=== PATIENT | female | born 1970 | race Caucasian/White ===

== ENCOUNTER 2024-03-14 14:50 | Emergency (ER) | payer BC, SELFPAY ==
[2024-03-14 14:57] VITALS: BP 182/104
--- NOTE | 2024-03-14 17:18 | ED.GENMED ---
History of Present Illness
General
Chief Complaint: Musculo-Skeletal Complaint
Source: patient
Exam Limitations: none
Time Seen by Provider: 03/14/24 15:22
Nursing documentation reviewed up to this point in time: agreed with
Travel History
Have you had any contact with someone who has COVID-19?: No
Do you have any symptoms of coronavirus? Fever > 100 degrees, chills, cough, shortness of breath, sore throat, loss of taste or smell, muscle aches, or headache?: No
History of Present Illness
History of Present Illness:
53-year-old female presenting to the emergency department today with concerns of left-sided wrist discomfort after falling directly on her left hand while gardening. Ongoing pain since. Pain mainly to the area below the pinky. Denies any
additional trauma no breaks in the skin
Past History
Past History
ED Past Medical History: Psychiatric and Other (Arthritis)
ED Past Surgical History: and Orthopedic (L3-4-5 surgery)
Social History
Tobacco: Non-smoker
Alcohol: None
Drug: None
Personal:
Living: with family
Employment: Employed
Review of Systems
Review of Systems
Allergies reviewed?: Yes
All Other Systems: ROS reviewed and negative except as documented in HPI and ROS
Phy Exam
Physical Exam
Physical Exam:
GENERAL: Alert , in no apparent distress
EYE: pupils equal and reactive
NECK: Supple, no significant adenopathy.
ENT: o/p clr, mmm.
CARDIAC: Regular rate and rhythm .
LUNGS: Clear breath sounds bilaterally, no acute respiratory distress, no wheezes/rales/rhonchi
ABDOMEN: Soft, without focal tenderness, no r/g, no cvat
NEUROLOGICAL: Alert and oriented, no focal neuro deficits
SKIN: Warm and dry, skin intact.
MUSCULOSKELETAL: Very mild swelling tender palpation to the mid to proximal fifth meta. Otherwise remainder of the hand no focal tenderness. Well perfused.
PSYCH: Normal and appropriate interaction.
Course
Orders/Labs/Results
Orders:
Orders
03/14/24 15:00
Hand, Left 3 View [CR Hand - Left Min 3 Views] Urgent
Comment:
Reason For Exam: fall
Wrist, Left 3 Views CR [CR Wrist - Left Min 3 Views] Urgent
Comment:
Reason For Exam: fall
Vital Signs
Initial and Last Documented VS:
Initial Vital Signs
Temp Pulse Resp BP Pulse Ox
97.9 F 97 18 182/104 97
03/14/24 14:57 03/14/24 14:57 03/14/24 14:57 03/14/24 14:57 03/14/24 14:57
Last Documented Vital Signs
Temp Pulse Resp BP Pulse Ox
97.9 F 97 18 182/104 97
03/14/24 14:57 03/14/24 14:57 03/14/24 14:57 03/14/24 14:57 03/14/24 14:57
MDM/Problems Addressed
MDM/Problems Addressed:
53-year-old female presenting to the emergency department today with concerns of hand and wrist discomfort to the left side after falling directly on her hand from ground-level fall. Pain is mainly to the mid to proximal portion of the fifth. On
x-ray there is no obvious displaced fracture there does appear to be's 1 small line to the base of the bone that is not clearly a fracture. In an abundance of caution placed in a splint and advised for close orthopedic follow-up for for further
management. Otherwise stable for discharge return precautions given. Neurovascular intact.
*Critical Care Note
Total Time (30-74mins, 75-104mins- exclusive of procedures): Not Applicable
ED Attending Note
-
Portions of this chart may have been created with voice recognition software.� Occasional wrong word or��sound alike� substitutions may have occurred due to the inherent limitations of voice recognition software.
Discharge Plan
Departure
Patient Disposition: Home (Routine Discharge)
Date of Disposition: 03/14/24
Time of Disposition: 17:18
Patient with high blood pressure during this ER visit?: No
Condition: Good
Covid-19: Not Applicable
Discharge Problem:
Hand sprain
Instructions: Muscle and Bone Pain (DC)
Prescriptions:
No Action
diphenhydramine-acetaminophen [Tylenol PM Extra Strength] 1 EACH tablet
1 ea PO HSPRN PRN (Reason: sleep)
cetirizine [Zyrtec] 10 MG tablet
10 mg PO DAILYPRN PRN (Reason: allergy)
metformin 500 mg Tablet
500 mg PO DAILY PRN (Reason: weight loss)
valacyclovir [Valtrex] 500 mg Tablet
500 mg PO DAILY
triamcinolone acetonide [Nasacort Allergy] 55 mcg Aerosol,[place]
1 spray INTRANASAL DAILY PRN (Reason: allergies)
Rx Instructions:
administer into each nostril
Wegovy 1 mg/0.5 mL Pen Injector
1 mg SC SA
ascorbic acid (vitamin C) [Vitamin C] 500 mg Tablet
500 mg PO Q72H
cholecalciferol (vitamin D3) 25 mcg (1,000 unit) Tablet
25 mcg PO Q72H
cyanocobalamin (vitamin B-12) 250 mcg Tablet,Chewable
250 mcg PO Q72H
mupirocin 2 % ointment
1 applic intranasal BID Qty: 1 0RF
Patient Comments:
last dose was this am, 03/18/23
aspirin 325 mg Tablet
325 mg PO DAILY Qty: 30 0RF
docusate sodium 100 mg Capsule
100 mg PO BID Qty: 10 0RF
prochlorperazine maleate 5 mg Tablet
5 mg PO TID Qty: 30 0RF
dronabinol 2.5 mg Capsule
5 mg PO Q6HPRN PRN (Reason: severe pain) Qty: 30 0RF
gabapentin 300 mg Capsule
300 mg PO TID Qty: 60 0RF
prednisone 20 mg tablet
40 mg PO DAILY Qty: 10 0RF
cyclobenzaprine 10 mg tablet
10 mg PO HS Qty: 7 0RF
Referrals:
Gretel Roach CRNP [Family Provider] -
Gregg Antonio MD [Active] - Follow up in 5-7 days
Activity Restrictions/Additional Instructions:
You came to the emergency department today with concerns of hand discomfort. There is no obvious displaced fractures. There was a questionable line in the base of your fifth metatarsal that was seen though it is unclear if this represents a mild
nondisplaced fracture. You were placed in a splint and precaution. Please have close with orthopedics for this. Return to the emergency department for any worsening, new or concerning symptoms.
Interventions
Interventions:
*Risk Screen - Suicide Last Done: 03/14/24 14:57
*General Assessment Last Done: 03/14/24 14:57
*Neglect/Abuse Screening Last Done: 03/14/24 14:57
ED- Fall Risk Assessment Last Done: 03/14/24 15:37
*ED COVID-19 Vaccine History Last Done: 03/14/24 15:27
*Nursing Disposition Last Done: 03/14/24 17:24
ED-Musculoskeletal Assessment Last Done: 03/14/24 15:37
Discharge Date and Time
Discharge Date/Time: 03/14/24 17:27
Print Language: INDONESIAN
== END 2024-03-14 17:27 | disposition home or self-care (01) ==
LOC: EMR 14:50
PROVIDERS: EMERGENCY PHYSICIAN Emergency Medicine; FAMILY PHYSICIAN Nurse Practitioner Family
DX: S63.92XA Sprain of unspecified part of left wrist and hand, initial encounter (principal); X58.XXXA Exposure to other specified factors, initial encounter; M19.90 Unspecified osteoarthritis, unspecified site
CPT/HCPCS: 99283; 73110; 73130

== ENCOUNTER 2024-05-11 08:08 | Emergency (ER) | payer BC, SELFPAY ==
[2024-05-11 08:10] VITALS: BP 174/98
[2024-05-11 08:26] VITALS: BMI 44.8
--- NOTE | 2024-05-11 08:29 | ED.GENMED ---
History of Present Illness
General
Chief Complaint: Abdominal Symptoms
Source: patient
Time Seen by Provider: 05/11/24 08:15
History of Present Illness
History of Present Illness:
See MDM
Past History
Past History
ED Past Medical History: Psychiatric and Other (Arthritis)
ED Past Surgical History: and Orthopedic (L3-4-5 surgery)
Social History
Tobacco: Non-smoker
Alcohol: None
Drug: None
Personal:
Living: with family
Employment: Employed
Phy Exam
Physical Exam
Physical Exam:
See MDM
Course
Orders/Labs/Results
Orders:
Orders
05/11/24 08:26
CT Abd/pelvis W Iv Cont Urgent
Comment:
Reason For Exam: L flank and LLQ pain
0.9% Sodium Chloride 1000 ml [Nss] 1,000 ml IV BOLUS
Ketorolac [Toradol] 30 mg IV NOW STA
Ondansetron Injectable [Zofran] 4 mg IV NOW STA
05/11/24 08:51
Complete Blood Count/With Diff Urgent
Comprehensive Metabolic Panel Urgent
Lipase Urgent
Urinalysis Reflex To Culture Urgent
Date Specimen was Collected: 05/11/24
Time Specimen was Collected: 08:48
05/11/24 10:58
Amoxicillin 875 mg/Clav 125 mg [Augmentin 875 mg/125 mg] 1 tablet PO NOW STA
Abnormal Lab Results
05/11/24
08:51
WBC 15.3 H 10^3/uL
(4.8-10.8)
Abs Immat Gran (auto) 0.1 H 10^3/uL
(0-0.05)
Absolute Neuts (auto) 11.1 H 10^3/uL
(1.4-6.5)
Absolute Monos (auto) 1.3 H 10^3/uL
(0.1-0.6)
Lymphocytes % 17.7 L %
(20.5-51.1)
Glucose 116 H mg/dl
(70-99)
05/11/24 08:51
05/11/24 08:51
Vital Signs
Initial and Last Documented VS:
Initial Vital Signs
Temp Pulse Resp BP Pulse Ox
98.7 F 97 16 174/98 98
05/11/24 08:10 05/11/24 08:10 05/11/24 08:10 05/11/24 08:10 05/11/24 08:10
Last Documented Vital Signs
Temp Pulse Resp BP Pulse Ox
98.7 F 92 22 128/67 94
05/11/24 08:10 05/11/24 10:23 05/11/24 10:23 05/11/24 10:23 05/11/24 10:23
MDM/Problems Addressed
Differential Diagnosis Includes:
HPI and MDM Narrative:
53-year-old female presenting with several days of left abdominal pain. Patient thought it could be a muscle strain so she took a muscle relaxer. Patient was also concerned that it could be constipation or possibly reflux. Patient states the pain
has been constant and getting worse.
On exam, she does appear uncomfortable. She has tenderness in her left abdomen and left lower quadrant. We discussed the possibilities of kidney stone versus constipation versus diverticulitis. Given her discomfort, will obtain CT
Physical exam
General: Mildly uncomfortable.
HEENT: protecting airway
Neck: appears supple
CV: No evidence of cyanosis
Resp: No accessory muscle use
Abd: Non-distended. Left abdominal tenderness without localized rebound.
Extremities: No deformities
Neuro: alert
Psych: Normal affect
Skin: No abdominal rash noted.
Problems Addressed including Acute and Chronic Conditions affecting care:
1. Abdominal pain
Acuity: acute
Prognosis: stable
Details: Given her ongoing pain, will obtain CT. Will give Toradol
2. Nausea
Acuity: acute
Prognosis: stable
Details: Will give IV Zofran.
Updates
CT consistent with mild uncomplicated diverticulitis. Will start Augmentin. Discussed follow-up with PCP and gastroenterology. We also discussed the adrenal versus renal cyst but patient has not had this followed up in the past.
Differential Diagnosis (but not limited to): Diverticulitis, kidney stone, pyelonephritis, constipation
Testing considered: EKG
Drug therapy (if applicable): OTC meds, please see d/c instruction regarding Rx drugs
Amount and/or Complexity of Data Reviewed
Clinical info obtained from: Patient
External data reviewed: N/A
Labs I independently reviewed (but not limited to): Mild leukocytosis
Radiology: The CT scan was personally and independently reviewed. In addition, official CT report reviewed.
Pulse Ox: not hypoxic
EKG independently reviewed: N/A
Supervisor Front: N/A
Critical Care: N/A
Risk of Complication:
Social Determinants of health: Good social support
Discussed with other providers: N/A
Escalation of Care includes Admit/Obs: After being observed in the Emergency Department, pt stable for discharge.
Occasional wrong word or 'sound a like' substitutions may have occurred due to the inherent limitations of voice recognition software. Read the chart carefully and recognize, using context, where substitutions have occurred.
*Critical Care Note
Total Time (30-74mins, 75-104mins- exclusive of procedures): Not Applicable
ED Attending Note
-
Portions of this chart may have been created with voice recognition software.� Occasional wrong word or��sound alike� substitutions may have occurred due to the inherent limitations of voice recognition software.
Discharge Plan
Departure
Patient Disposition: Home (Routine Discharge)
Date of Disposition: 05/11/24
Time of Disposition: 10:59
Patient with high blood pressure during this ER visit?: No
Discharge Problem:
Diverticulitis
Instructions: Diverticulitis (DC)
Prescriptions:
New
diclofenac potassium 50 mg tablet
50 mg PO BID Qty: 20 0RF
ondansetron 4 mg Tablet,Disintegrating
4 mg PO BIDPRN PRN (Reason: nausea/vomiting) Qty: 10 0RF
amoxicillin-pot clavulanate 875-125 mg tablet
1 tab PO BID Qty: 14 0RF
oxycodone 5 mg tablet
5 mg PO Q8H PRN (Reason: Pain) Qty: 7 0RF
No Action
diphenhydramine-acetaminophen [Tylenol PM Extra Strength] 1 EACH tablet
1 ea PO HSPRN PRN (Reason: sleep)
cetirizine [Zyrtec] 10 MG tablet
10 mg PO DAILYPRN PRN (Reason: allergy)
metformin 500 mg Tablet
500 mg PO DAILY PRN (Reason: weight loss)
valacyclovir [Valtrex] 500 mg Tablet
500 mg PO DAILY
triamcinolone acetonide [Nasacort Allergy] 55 mcg Aerosol,[place]
1 spray INTRANASAL DAILY PRN (Reason: allergies)
Rx Instructions:
administer into each nostril
Wegovy 1 mg/0.5 mL Pen Injector
1 mg SC SA
ascorbic acid (vitamin C) [Vitamin C] 500 mg Tablet
500 mg PO Q72H
cholecalciferol (vitamin D3) 25 mcg (1,000 unit) Tablet
25 mcg PO Q72H
cyanocobalamin (vitamin B-12) 250 mcg Tablet,Chewable
250 mcg PO Q72H
mupirocin 2 % ointment
1 applic intranasal BID Qty: 1 0RF
Patient Comments:
last dose was this am, 03/18/23
aspirin 325 mg Tablet
325 mg PO DAILY Qty: 30 0RF
docusate sodium 100 mg Capsule
100 mg PO BID Qty: 10 0RF
prochlorperazine maleate 5 mg Tablet
5 mg PO TID Qty: 30 0RF
dronabinol 2.5 mg Capsule
5 mg PO Q6HPRN PRN (Reason: severe pain) Qty: 30 0RF
gabapentin 300 mg Capsule
300 mg PO TID Qty: 60 0RF
prednisone 20 mg tablet
40 mg PO DAILY Qty: 10 0RF
cyclobenzaprine 10 mg tablet
10 mg PO HS Qty: 7 0RF
Referrals:
Salena Tate DO [Active] -
Gretel Hubbard MD [Family Provider] -
Stand Alone Forms: Return to Work
Activity Restrictions/Additional Instructions:
Please return for any worsening symptoms.
You may return at any time if you have further concerns.
Please follow up with your doctor at the first available appointment, preferably this week.
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
Thank you for choosing [facility].
Interventions
Interventions:
*Risk Screen - Suicide Last Done: 05/11/24 08:26
*General Assessment Last Done: 05/11/24 08:26
*Neglect/Abuse Screening Last Done: 05/11/24 08:26
ED- Fall Risk Assessment Last Done: 05/11/24 08:26
*ED COVID-19 Vaccine History Last Done: 05/11/24 08:34
MZ-Wfvxhf-Vnqpymvpta Assessment Last Done: 05/11/24 08:26
Discharge Date and Time
Print Language: ICELANDIC
[2024-05-11] MEDS: NSS 1000 IV (08:56)
[2024-05-11] MEDS: TORADOL 30 MG IV (08:57)
[2024-05-11] MEDS: ZOFRAN 4 MG IV (08:57)
[2024-05-11 09:00] VITALS: BP 139/86
[2024-05-11 09:09] LABS: % Basophils 0.3 % (0-2); % Eosinophils 0.3 % (0-6); % Immature Granulocytes 0.3 % (0-0.5); % Lymphocytes 17.7 % (20.5-51.1); % Monocytes 8.7 % (1.7-9.3); % Neutrophils 72.7 % (42.2-75.2); Absolute Immature Granulocytes 0.1 10^3/uL (0-0.05); Absolute Lymphocytes 2.7 10^3/uL (1.2-3.4); Absolute Monocytes 1.3 10^3/uL (0.1-0.6); Absolute Neutrophils 11.1 10^3/uL (1.4-6.5); Hematocrit 40.5 % (37.0-47.0); Hemoglobin 13.6 g/dL (12.0-16.0); Mean Corp Hgb Conc. 33.6 g/dL (33.0-37.0); Mean Corpuscular Hgb 30.4 pg (27.0-31.0); Mean Corpuscular Volume 90.4 fL (81.0-99.0); Mean Platelet Volume 10.1 fL (7.4-10.4); Nucleated Red Blood Cells % 0 %; Platelet Count 285 10^3/uL (130-400); Red Blood Cell Count 4.48 10^6/uL (4.20-5.40); Red Cell Dist. Width 13.2 % (11.5-14.5); White Blood Cell Count 15.3 10^3/uL (4.8-10.8)
[2024-05-11 09:21] LABS: ALT (SGPT) 26 U/L (0-35); AST (SGOT) 24 U/L (14-36); Albumin 4.3 g/dl (3.5-5.0); Alkaline Phosphatase 96 U/L (38-126); Blood Urea Nitrogen 10 mg/dl (7-17); Calcium 9.7 mg/dl (8.4-10.2); Carbon Dioxide 30 mmol/L (22-30); Chloride 100 mmol/L (98-107); Estimated Creatinine Clearance 111 ml/min; Glucose 116 mg/dl (70-99); Lipase 105 U/L (23-300); Potassium 4.3 mmol/L (3.5-5.1); Sodium 137 mmol/L (135-145); Total Bilirubin 0.8 mg/dl (0.2-1.3); Total Protein 7.4 g/dl (6.3-8.2); eGFR > 60.00
[2024-05-11 10:19] LABS: Urine Albumin Negative (Neg - Trace); Urine Bilirubin Negative (Negative); Urine Character Clear (Clear); Urine Color Yellow; Urine Glucose Negative (Negative); Urine Ketone Negative (Negative); Urine Leukocyte Negative (Negative); Urine Nitrite Negative (Negative); Urine Occult Blood Negative (Negative); Urine Urobilinogen Negative (Neg - 1+)
[2024-05-11 10:23] VITALS: BP 128/67
[2024-05-11] MEDS: AUGMENTIN 875 MG/125 MG 1 TABLET PO (11:09)
== END 2024-05-11 11:21 | disposition home or self-care (01) ==
LOC: EMR 08:08
PROVIDERS: EMERGENCY PHYSICIAN Student in an Organized Health Care Education/Training Program; FAMILY PHYSICIAN Family Medicine
DX: K57.92 Diverticulitis of intestine, part unspecified, without perforation or abscess without bleeding (principal)
CPT/HCPCS: 99284; 96374; 96375; 96361; 74177; 80053; 81003; 83690; 85025; Q9967

== ENCOUNTER 2024-09-13 20:35 | Emergency (ER) | payer BC, SELFPAY ==
[2024-09-13 20:38] VITALS: BP 203/105
--- NOTE | 2024-09-13 21:28 | ED.GENMED ---
History of Present Illness
General
Chief Complaint: Flank Pain
Source: patient
Time Seen by Provider: 09/13/24 21:19
History of Present Illness
History of Present Illness:
54-year-old female presents to the emergency room complaining of left lower abdominal pain. Pain began in the morning and has become worse throughout the day. Pain is somewhat worse with movement. She feels bloated. Patient states this pain is
similar to what she was experiencing when diagnosed with diverticulitis in May. No fever. No dysuria or frequency. Patient has left knee pain for which she requires a left knee replacement. She recently received a steroid injection in her knee.
She is also been taking meloxicam and tramadol for pain.
Past History
Past History
ED Past Medical History: Psychiatric and Other (Arthritis)
ED Past Surgical History: and Orthopedic (L3-4-5 surgery)
Social History
Tobacco: Non-smoker
Alcohol: None
Drug: None
Personal:
Living: with family
Employment: Employed
Phy Exam
Physical Exam
Physical Exam:
General: Awake, Alert, Oriented X3. No acute distress. High BMI
Vitals: unremarkable
Head: Atraumatic
Eyes: Pupils equal, EOMI
Throat: Airway intact, no exudates
Neck: Trachea midline
Lungs: Clear and equal b/l
Heart: Regular rate, no murmurs
Abd: Soft, protuberant abdomen, tender in the left lower quadrant, No pulsatile mass
Neuro: Nonfocal
Skin: Warm, dry, no rash
Extremities: pulses equal b/l, no edema
Course
Orders/Labs/Results
Orders:
Orders
09/13/24 21:21
Complete Blood Count/With Diff Urgent
Comprehensive Metabolic Panel Urgent
Lipase Urgent
Comment: ADD ON
09/13/24 21:22
Add On- LAB Urgent
Tests Added?: lipase
09/13/24 21:27
Ketorolac [Toradol] 15 mg IV NOW STA
09/13/24 21:28
CT Abd/pelvis W Iv Cont Urgent
Comment:
Reason For Exam: llq abd pain
09/13/24 22:44
Urinalysis Reflex To Culture Urgent
Date Specimen was Collected: 09/13/24
Time Specimen was Collected: 21:15
09/13/24 22:49
Acetaminophen [Tylenol] 1,000 mg .ROUTE .STK-MED ONE
Acetaminophen [Tylenol] 1,000 mg PO NOW STA
09/13/24 23:19
Amoxicillin 875 mg/Clav 125 mg [Augmentin 875 mg/125 mg] 1 tablet PO NOW STA
Abnormal Lab Results
09/13/24
21:21
WBC 19.9 H 10^3/uL
(4.8-10.8)
Abs Immat Gran (auto) 0.1 H 10^3/uL
(0-0.05)
Absolute Neuts (auto) 17.3 H 10^3/uL
(1.4-6.5)
Absolute Monos (auto) 1.0 H 10^3/uL
(0.1-0.6)
Immature Gran % 0.6 H %
(0-0.5)
Neutrophils % 87.0 H %
(42.2-75.2)
Lymphocytes % 7.5 L %
(20.5-51.1)
Glucose 220 H mg/dl
(70-99)
Total Bilirubin 0.1 L mg/dl
(0.2-1.3)
09/13/24 21:21
09/13/24 21:21
Vital Signs
Initial and Last Documented VS:
Initial Vital Signs
Temp Pulse Resp BP Pulse Ox
98.1 F 91 16 203/105 97
09/13/24 20:38 09/13/24 20:38 09/13/24 20:38 09/13/24 20:38 09/13/24 20:38
Last Documented Vital Signs
Temp Pulse Resp BP Pulse Ox
98.1 F 78 18 155/81 96
09/13/24 20:38 09/13/24 22:46 09/13/24 22:46 09/13/24 22:46 09/13/24 22:46
MDM/Problems Addressed
Differential Diagnosis Includes:
Kidney stone, diverticulitis, colitis
MDM/Problems Addressed:
54-year-old female presents with left lower abdominal pain. White count elevated 19.9. Glucose mildly evaluate to 20. Urinalysis is unremarkable. CT of the abdomen pelvis shows diverticulitis of the mid descending colon. Patient feels better
after Toradol. Discussed inpatient versus outpatient management. Patient feels she is okay for outpatient management. Augmentin prescribed. Given her contact information for colorectal surgery follow-up. She has not had a colonoscopy before
though she did have a Cologuard. Recommend she follow-up with colorectal surgery for colonoscopy and also to establish a relationship with them because she has had 2 episodes of diverticulitis in 6 months
*Radiology
Radiology exam reviewed: radiology read reviewed
*Pulse Oximetry
Patient hypoxic: no
*Critical Care Note
Total Time (30-74mins, 75-104mins- exclusive of procedures): Not Applicable
ED Attending Note
-
Portions of this chart may have been created with voice recognition software.� Occasional wrong word or��sound alike� substitutions may have occurred due to the inherent limitations of voice recognition software.
Discharge Plan
Departure
Patient Disposition: Home (Routine Discharge)
Date of Disposition: 09/13/24
Time of Disposition: 23:20
Patient with high blood pressure during this ER visit?: No
Condition: Good
Discharge Problem:
Diverticulitis
Instructions: Diverticulitis (DC)
Prescriptions:
New
amoxicillin-pot clavulanate 875-125 mg tablet
1 tab PO BID Qty: 14 0RF
No Action
diphenhydramine-acetaminophen [Tylenol PM Extra Strength] 1 EACH tablet
1 ea PO HSPRN PRN (Reason: sleep)
cetirizine [Zyrtec] 10 MG tablet
10 mg PO DAILYPRN PRN (Reason: allergy)
metformin 500 mg Tablet
500 mg PO DAILY PRN (Reason: weight loss)
valacyclovir [Valtrex] 500 mg Tablet
500 mg PO DAILY
triamcinolone acetonide [Nasacort Allergy] 55 mcg Aerosol,[place]
1 spray INTRANASAL DAILY PRN (Reason: allergies)
Rx Instructions:
administer into each nostril
Wegovy 1 mg/0.5 mL Pen Injector
1 mg SC SA
ascorbic acid (vitamin C) [Vitamin C] 500 mg Tablet
500 mg PO Q72H
cholecalciferol (vitamin D3) 25 mcg (1,000 unit) Tablet
25 mcg PO Q72H
cyanocobalamin (vitamin B-12) 250 mcg Tablet,Chewable
250 mcg PO Q72H
mupirocin 2 % ointment
1 applic intranasal BID Qty: 1 0RF
Patient Comments:
last dose was this am, 03/18/23
aspirin 325 mg Tablet
325 mg PO DAILY Qty: 30 0RF
docusate sodium 100 mg Capsule
100 mg PO BID Qty: 10 0RF
prochlorperazine maleate 5 mg Tablet
5 mg PO TID Qty: 30 0RF
dronabinol 2.5 mg Capsule
5 mg PO Q6HPRN PRN (Reason: severe pain) Qty: 30 0RF
gabapentin 300 mg Capsule
300 mg PO TID Qty: 60 0RF
prednisone 20 mg tablet
40 mg PO DAILY Qty: 10 0RF
cyclobenzaprine 10 mg tablet
10 mg PO HS Qty: 7 0RF
diclofenac potassium 50 mg tablet
50 mg PO BID Qty: 20 0RF
ondansetron 4 mg Tablet,Disintegrating
4 mg PO BIDPRN PRN (Reason: nausea/vomiting) Qty: 10 0RF
amoxicillin-pot clavulanate 875-125 mg tablet
1 tab PO BID Qty: 14 0RF
oxycodone 5 mg tablet
5 mg PO Q8H PRN (Reason: Pain) Qty: 7 0RF
Referrals:
Sergio La MD [Active] -
Gretel Roach CRNP [Family Provider] -
Interventions
Interventions:
*Risk Screen - Suicide Last Done: 09/13/24 20:38
*General Assessment Last Done: 09/13/24 23:31
*Neglect/Abuse Screening Last Done: 09/13/24 20:38
ED- Fall Risk Assessment Last Done: 09/13/24 23:31
*ED COVID-19 Vaccine History Last Done: 09/13/24 23:31
*Nursing Disposition Last Done: 09/13/24 23:31
LQ-Qoalex-Zduotepwnb Assessment Last Done: 09/13/24 21:20
ED-Female Genitourinary Assessment Last Done: 09/13/24 21:20
Discharge Date and Time
Discharge Date/Time: 09/13/24 23:33
Print Language: BENGALI
[2024-09-13 21:30] LABS: % Basophils 0.1 % (0-2); % Immature Granulocytes 0.6 % (0-0.5); % Lymphocytes 7.5 % (20.5-51.1); % Monocytes 4.8 % (1.7-9.3); Absolute Immature Granulocytes 0.1 10^3/uL (0-0.05); Absolute Lymphocytes 1.5 10^3/uL (1.2-3.4); Absolute Neutrophils 17.3 10^3/uL (1.4-6.5); Hematocrit 37.9 % (37.0-47.0); Hemoglobin 13.1 g/dL (12.0-16.0); Mean Corp Hgb Conc. 34.6 g/dL (33.0-37.0); Mean Corpuscular Hgb 30.3 pg (27.0-31.0); Mean Corpuscular Volume 87.7 fL (81.0-99.0); Mean Platelet Volume 9.8 fL (7.4-10.4); Nucleated Red Blood Cells % 0 %; Platelet Count 320 10^3/uL (130-400); Red Blood Cell Count 4.32 10^6/uL (4.20-5.40); Red Cell Dist. Width 13.3 % (11.5-14.5); White Blood Cell Count 19.9 10^3/uL (4.8-10.8)
[2024-09-13] MEDS: TORADOL 15 MG IV (21:43)
[2024-09-13 21:52] LABS: ALT (SGPT) 20 U/L (0-35); AST (SGOT) 17 U/L (14-36); Albumin 3.9 g/dl (3.5-5.0); Alkaline Phosphatase 74 U/L (38-126); Blood Urea Nitrogen 17 mg/dl (7-17); Calcium 9.8 mg/dl (8.4-10.2); Carbon Dioxide 22 mmol/L (22-30); Chloride 106 mmol/L (98-107); Glucose 220 mg/dl (70-99); Lipase 64 U/L (23-300); Potassium 4.4 mmol/L (3.5-5.1); Sodium 138 mmol/L (135-145); Total Bilirubin 0.1 mg/dl (0.2-1.3); eGFR > 60.00
[2024-09-13 22:46] VITALS: BP 155/81
[2024-09-13] MEDS: TYLENOL 1000 MG PO (22:50)
[2024-09-13 23:04] LABS: Urine Albumin Trace (Neg - Trace); Urine Bilirubin Negative (Negative); Urine Character Clear (Clear); Urine Color Yellow; Urine Glucose Negative (Negative); Urine Ketone Negative (Negative); Urine Leukocyte Negative (Negative); Urine Nitrite Negative (Negative); Urine Occult Blood Negative (Negative); Urine Urobilinogen Negative (Neg - 1+)
[2024-09-13] MEDS: AUGMENTIN 875 MG/125 MG 1 TABLET PO (23:27)
== END 2024-09-13 23:33 | disposition home or self-care (01) ==
LOC: EMR 20:35
PROVIDERS: EMERGENCY PHYSICIAN Emergency Medicine; FAMILY PHYSICIAN Nurse Practitioner Family
DX: K57.32 Diverticulitis of large intestine without perforation or abscess without bleeding (principal)
CPT/HCPCS: 99285; 96374; 74177; 80053; 81003; 83690; 85025; Q9967

== ENCOUNTER 2024-09-17 18:06 | Inpatient (IN) | payer BC, SELFPAY ==
[2024-09-17] VITALS (8 sets, daily range): BP systolic 136–170; BP diastolic 61–98; BMI 44.8; BMI 44.1
[2024-09-17 11:09] LABS: % Basophils 0.4 % (0-2); % Eosinophils 1.1 % (0-6); % Immature Granulocytes 0.4 % (0-0.5); % Lymphocytes 19.7 % (20.5-51.1); % Monocytes 6.3 % (1.7-9.3); % Neutrophils 72.1 % (42.2-75.2); Absolute Basophils 0.1 10^3/uL (0-0.2); Absolute Eosinophils 0.1 10^3/uL (0-0.7); Absolute Immature Granulocytes 0.1 10^3/uL (0-0.05); Absolute Lymphocytes 2.6 10^3/uL (1.2-3.4); Absolute Monocytes 0.8 10^3/uL (0.1-0.6); Absolute Neutrophils 9.5 10^3/uL (1.4-6.5); Hematocrit 41.8 % (37.0-47.0); Hemoglobin 14.3 g/dL (12.0-16.0); Mean Corp Hgb Conc. 34.2 g/dL (33.0-37.0); Mean Corpuscular Hgb 30.8 pg (27.0-31.0); Mean Corpuscular Volume 89.9 fL (81.0-99.0); Mean Platelet Volume 9.9 fL (7.4-10.4); Nucleated Red Blood Cells % 0 %; Platelet Count 315 10^3/uL (130-400); Red Blood Cell Count 4.65 10^6/uL (4.20-5.40); Red Cell Dist. Width 13.2 % (11.5-14.5); Urine Albumin Trace (Neg - Trace); Urine Bilirubin Negative (Negative); Urine Character Clear (Clear); Urine Color Yellow; Urine Glucose Negative (Negative); Urine Ketone 1+ (Negative); Urine Leukocyte Trace (Negative); Urine Nitrite Negative (Negative); Urine Occult Blood 4+ (Negative); Urine Urobilinogen Negative (Neg - 1+); White Blood Cell Count 13.2 10^3/uL (4.8-10.8)
[2024-09-17 11:33] LABS: Blood Urea Nitrogen 11 mg/dl (7-17); Calcium 9.2 mg/dl (8.4-10.2); Carbon Dioxide 26 mmol/L (22-30); Chloride 102 mmol/L (98-107); Estimated Creatinine Clearance > 125 ml/min; Glucose 129 mg/dl (70-99); Sodium 138 mmol/L (135-145); eGFR > 60.00
[2024-09-17] MEDS: TORADOL 15 MG IV (11:44)
[2024-09-17 12:03] LABS: Urine Squamous Cell 26-30 /LPF (Few)
[2024-09-17 12:04] LABS: Urine Amorphous Seen
[2024-09-17 12:05] LABS: Urine Red Blood Cell 40-50 /HPF (0-2); Urine White Cell 0-2 /HPF (0-5)
--- NOTE | 2024-09-17 12:06 | ED.GENMED ---
History of Present Illness
<Laura Nuno PA-C - Last Filed: 09/17/24 18:04>
General
Chief Complaint: Urinary Symptoms
Source: patient
Exam Limitations: none
Time Seen by Provider: 09/17/24 10:46
Nursing documentation reviewed up to this point in time: agreed with
History of Present Illness
History of Present Illness:
Patient is a 54-year-old female with acute diverticulitis currently on antibiotics presenting to the emergency department for evaluation of hematuria. Patient seen in the emergency department last week, diagnosed with acute diverticulitis, and
started on a course of Augmentin. Patient states pain in left mid abdomen has slowly been improving, although she has noticed some pressure in her suprapubic region over the past 2 days. She also endorses urinary frequency. No dysuria.
However�this morning patient had a few episodes of blood in her urine. She did contact her primary care provider who was concerned about a possible bladder infection and sent to the emergency department for evaluation.
Patient denies any fevers, nausea/vomiting, diarrhea.
Pain that she was experiencing last week has begun to slowly improve.
Past History
<Laura Nuno PA-C - Last Filed: 09/17/24 18:04>
Past History
ED Past Medical History: Psychiatric and Other (Arthritis)
ED Past Surgical History: and Orthopedic (L3-4-5 surgery)
Social History
Tobacco: Non-smoker
Alcohol: None
Drug: None
Personal:
Living: with family
Employment: Employed
Review of Systems
<SHANKAR Roman Last Filed: 09/17/24 18:04>
Review of Systems
Allergies reviewed?: Yes
All Other Systems: ROS reviewed and negative except as documented in HPI and ROS
Phy Exam
<Laura Nuno PA-C - Last Filed: 09/17/24 18:04>
Physical Exam
Physical Exam:
Vitals: Hypertensive, otherwise vital signs stable.
General: Patient is well appearing, no acute distress. Nontoxic appearing
Skin: Warm and dry, no rashes or lesions
Head: Normocephalic, atraumatic
Eyes: Sclera nonicteric. EOMs intact. No nystagmus.
Throat: Protecting airway
Neck: Normal ROM, no cervical spine tenderness, no meningismus
Cardiac: Regular rate and rhythm, no murmurs.
Pulm: Normal respiratory effort, no wheezes, rales, rhonchi heard on exam.
Abdomen: Abdomen soft. Moderate abdominal tenderness in left mid abdomen. Mild tenderness in suprapubic region. No rebound tenderness or guarding. No CVA tenderness
Extremities: No evidence of cyanosis or edema
Neuro: AAOx3. Grossly intact.
Psychiatric: Normal affect.
Sepsis
<Laura Nuno PA-C - Last Filed: 09/17/24 18:04>
Sepsis Screening
Sepsis Assessment: Sepsis Ruled Out
Sepsis Screen
Sepsis Screen: Sepsis Ruled Out
Date: 09/17/24
Time: 18:03
<Halle Capone DO - Last Filed: 09/17/24 14:05>
Sepsis Screen
Sepsis Screen: Sepsis Ruled Out
Date: 09/17/24
Time: 14:04
Course
<Laura Nuno PA-C - Last Filed: 09/17/24 18:04>
Orders/Labs/Results
Orders:
Orders
09/17/24 10:57
Basic Metabolic Panel Urgent
Complete Blood Count/With Diff Urgent
Urinalysis Reflex To Culture Urgent
Date Specimen was Collected: 09/17/24
Time Specimen was Collected: 10:47
Urine Microscopic Reflex Cult Urgent
09/17/24 11:38
Ketorolac [Toradol] 15 mg IV NOW STA
09/17/24 12:41
CT Abd/Pel (IV only)-DH only Urgent
Comment: currently on abx for acute diveritculitis
Reason For Exam: hematuria, left mid abdomen pain
09/17/24 12:42
0.9% Sodium Chloride 1000 ml [Nss] 1,000 ml IV BOLUS
09/17/24 14:08
Piperacillin/Tazo 3.375 Gram [Zosyn] 3.375 gram in 50 ml IV NOW
09/17/24 Dinner
Full Liquids
09/17/24 17:20
Consult Surgery [SURGICAL CONSULT] Routine
Consulting Provider: Leandro Jaramillo
Was physician already notified: Yes
Reason for consult: Severe diverticulitis descending colon with pericolonic abscess
09/17/24 17:23
SURGICAL CONSULT Routine
Consulting Provider: Shimon Martinez
Was physician already notified: Yes
Reason for consult: Severe diverticulitis with pericolonic abscess 2.2 x 1.9 x 7.4 cm
09/17/24 17:27
Consult Interventional Radiology [IRAD CONSULT] Routine
Consulting Provider: Schuyler Blake
Was physician already notified: Yes
Reason for Consult/Procedure: Pericolonic abscess 2.2 x 1.9 x 7.4 cm needs drainage
Acknowledgement that appropriate orders are entered: Yes
09/17/24 17:29
Body Fluid Cell Count Urgent
What is the Body Fluid: pericolonic
Body Fluid Crystals Urgent
What is the Body Fluid: right pericolonic
Fluid Culture with Gram Stain Urgent
MARIN Source: Fluid
Specimen Description:
Comment: pericolonic
Gram Stain Routine
MARIN Source: Abdomen
Specimen Description:
Comment: percolonic
09/17/24 17:33
Admit/Transfer Patient As Directed
Co-Sign Provider:
Level of Care: Inpatient admission
Assign to:: Medical/Surgical
Physician / Group: simeon archer
Diagnosis: Diverticulitis descending colon with pericolonic abscess
Reason for Hospitalization: Diverticulitis descending colon with pericolonic abscess
Expected length of stay greater than two midnights?: Yes
ELOS- Estimated Length of Stay in days: 5
I certify the patient meets the requirements for IP care: Yes
Code Status As Directed
Resuscitation Status: Full Code
09/17/24 17:41
PRN Pain Medication Management As Directed
May give lesser potent ordered pain med per pt: Yes
preference::
Protocol:: Medication orders for pain may be administered in a
manner that supports deferring to patient preference
when the pt is:
- Requesting an ordered lesser potent pain medication.
Least to most potent pain medications are defined
as: acetaminophen < NSAID < tramadol < opioids
(morphine, oxycodone, hydromorphone).
- Requesting a lesser dose of the same medication IF
ORDERED.
- Requesting a less intrusive route of administration
if both routes are prescribed by the provider (PO <
IV).
09/18/24 Breakfast
NPO
Allow oral meds: Yes
Allow clear liquids: No
NPO with Ice Chips: No
Cell Count (Body Fluid) [Body Fluid Cell Count] IN AM
What is the Body Fluid: pericolonic
Fluid Culture with Gram Stain IN AM
MARIN Source: Peritoneal Fluid
Specimen Description:
Comment: percolonic fluid
Abnormal Lab Results
09/17/24
10:57
WBC 13.2 H 10^3/uL
(4.8-10.8)
Abs Immat Gran (auto) 0.1 H 10^3/uL
(0-0.05)
Absolute Neuts (auto) 9.5 H 10^3/uL
(1.4-6.5)
Absolute Monos (auto) 0.8 H 10^3/uL
(0.1-0.6)
Lymphocytes % 19.7 L %
(20.5-51.1)
Glucose 129 H mg/dl
(70-99)
Urine Ketones 1+ A
(Negative)
Ur Occult Blood Reflex 4+ A
(Negative)
Leukocyte Esterase Rfl Trace A
(Negative)
Urine RBC 40-50 A /HPF
(0-2)
09/17/24 10:57
09/17/24 10:57
Vital Signs
Initial and Last Documented VS:
Initial Vital Signs
Temp Pulse Resp BP Pulse Ox
98.1 F 86 16 162/89 96
09/17/24 10:36 09/17/24 10:36 09/17/24 10:36 09/17/24 10:36 09/17/24 10:36
Last Documented Vital Signs
Temp Pulse Resp BP Pulse Ox
98.1 F 68 18 145/77 96
09/17/24 10:36 09/17/24 13:00 09/17/24 13:00 09/17/24 12:00 09/17/24 13:00
<Halle Capone, DO - Last Filed: 09/17/24 14:05>
Orders/Labs/Results
Orders:
Orders
09/17/24 10:57
Basic Metabolic Panel Urgent
Complete Blood Count/With Diff Urgent
Urinalysis Reflex To Culture Urgent
Date Specimen was Collected: 09/17/24
Time Specimen was Collected: 10:47
Urine Microscopic Reflex Cult Urgent
09/17/24 11:38
Ketorolac [Toradol] 15 mg IV NOW STA
09/17/24 12:41
CT Abd/Pel (IV only)-DH only Urgent
Comment: currently on abx for acute diveritculitis
Reason For Exam: hematuria, left mid abdomen pain
09/17/24 12:42
0.9% Sodium Chloride 1000 ml [Nss] 1,000 ml IV BOLUS
09/17/24 14:08
Piperacillin/Tazo 3.375 Gram [Zosyn] 3.375 gram in 50 ml IV NOW
09/17/24 Dinner
Full Liquids
09/17/24 17:20
Consult Surgery [SURGICAL CONSULT] Routine
Consulting Provider: Leandro Jaramillo
Was physician already notified: Yes
Reason for consult: Severe diverticulitis descending colon with pericolonic abscess
09/17/24 17:23
SURGICAL CONSULT Routine
Consulting Provider: Shimon Martinez
Was physician already notified: Yes
Reason for consult: Severe diverticulitis with pericolonic abscess 2.2 x 1.9 x 7.4 cm
09/17/24 17:27
Consult Interventional Radiology [IRAD CONSULT] Routine
Consulting Provider: Schuyler Blake
Was physician already notified: Yes
Reason for Consult/Procedure: Pericolonic abscess 2.2 x 1.9 x 7.4 cm needs drainage
Acknowledgement that appropriate orders are entered: Yes
09/17/24 17:29
Body Fluid Cell Count Urgent
What is the Body Fluid: pericolonic
Body Fluid Crystals Urgent
What is the Body Fluid: right pericolonic
Fluid Culture with Gram Stain Urgent
MARIN Source: Fluid
Specimen Description:
Comment: pericolonic
Gram Stain Routine
MARIN Source: Abdomen
Specimen Description:
Comment: percolonic
09/17/24 17:33
Admit/Transfer Patient As Directed
Co-Sign Provider:
Level of Care: Inpatient admission
Assign to:: Medical/Surgical
Physician / Group: simeon archer
Diagnosis: Diverticulitis descending colon with pericolonic abscess
Reason for Hospitalization: Diverticulitis descending colon with pericolonic abscess
Expected length of stay greater than two midnights?: Yes
ELOS- Estimated Length of Stay in days: 5
I certify the patient meets the requirements for IP care: Yes
Code Status As Directed
Resuscitation Status: Full Code
09/17/24 17:41
PRN Pain Medication Management As Directed
May give lesser potent ordered pain med per pt: Yes
preference::
Protocol:: Medication orders for pain may be administered in a
manner that supports deferring to patient preference
when the pt is:
- Requesting an ordered lesser potent pain medication.
Least to most potent pain medications are defined
as: acetaminophen < NSAID < tramadol < opioids
(morphine, oxycodone, hydromorphone).
- Requesting a lesser dose of the same medication IF
ORDERED.
- Requesting a less intrusive route of administration
if both routes are prescribed by the provider (PO <
IV).
09/18/24 Breakfast
NPO
Allow oral meds: Yes
Allow clear liquids: No
NPO with Ice Chips: No
Cell Count (Body Fluid) [Body Fluid Cell Count] IN AM
What is the Body Fluid: pericolonic
Fluid Culture with Gram Stain IN AM
MARIN Source: Peritoneal Fluid
Specimen Description:
Comment: percolonic fluid
Abnormal Lab Results
09/17/24
10:57
WBC 13.2 H 10^3/uL
(4.8-10.8)
Abs Immat Gran (auto) 0.1 H 10^3/uL
(0-0.05)
Absolute Neuts (auto) 9.5 H 10^3/uL
(1.4-6.5)
Absolute Monos (auto) 0.8 H 10^3/uL
(0.1-0.6)
Lymphocytes % 19.7 L %
(20.5-51.1)
Glucose 129 H mg/dl
(70-99)
Urine Ketones 1+ A
(Negative)
Ur Occult Blood Reflex 4+ A
(Negative)
Leukocyte Esterase Rfl Trace A
(Negative)
Urine RBC 40-50 A /HPF
(0-2)
09/17/24 10:57
09/17/24 10:57
Vital Signs
Initial and Last Documented VS:
Initial Vital Signs
Temp Pulse Resp BP Pulse Ox
98.1 F 86 16 162/89 96
09/17/24 10:36 09/17/24 10:36 09/17/24 10:36 09/17/24 10:36 09/17/24 10:36
Last Documented Vital Signs
Temp Pulse Resp BP Pulse Ox
98.1 F 68 18 145/77 96
09/17/24 10:36 09/17/24 13:00 09/17/24 13:00 09/17/24 12:00 09/17/24 13:00
<Laura Nuno PA-C - Last Filed: 09/17/24 18:04>
MDM/Problems Addressed
Differential Diagnosis Includes:
Not limited to: UTI, kidney stone, complicated diverticulitis including abscess or perforation,
MDM/Problems Addressed:
54-year-old female currently on oral antibiotics for acute diverticulitis presenting with persistent abdominal pain and hematuria. She does note some suprapubic 'pressure', although no dysuria. No fevers, vomiting. Patient hypertensive, otherwise
vital signs are stable. She is afebrile. Physical exam as above. Labs were initiated in triage which show a mild leukocytosis of 13.2 which is decreased from most recent ER visit where it was 19.9. Chemistry unremarkable. Urinalysis does show
40-50 RBCs although no evidence of infection. Given patient's significant abdominal tenderness on exam with known diverticulitis�will check CT scan to rule out complications of diverticulitis versus other acute intra-abdominal pathology. Toradol
for pain.
Chronic conditions affecting care:
Diverticulosis
Acute Exacerbation and/or Progression of Chronic Illness:
Severe acute complicated diverticulitis
<Laura Nuno PA-C - Last Filed: 09/17/24 18:04>
*Radiology
Radiology exam reviewed: preliminary read by ED provider and radiology read reviewed (Severe worsening acute diverticulitis with developing pericolonic abscess)
*Pulse Oximetry
Patient hypoxic: no
*EKG
Interpreted by ED Provider?: NA
*Bicycle Taxi Driver Interpretation
Rate: Bicycle Taxi Driver- N/A
*Critical Care Note
Total Time (30-74mins, 75-104mins- exclusive of procedures): Not Applicable
Data Reviewed
Review of Other/Old Records Reveals: Records (Emergency department visit from 09/13/2024-discharged on Augmentin for diverticulitis) and Radiology Studies (CT report report from 09/13/2024 which showed acute diverticulitis of mid descending colon
without complication)
<Laura Nuno PA-C - Last Filed: 09/17/24 18:04>
Patient Management
Discussion with other providers: Hospitalist
Escalation/DeEscalation of care consider admission/obs:
Admit for IV antibiotics
<Laura Nuno PA-C - Last Filed: 09/17/24 18:04>
Update Note
Update Note:
Update 2:08 PM: CT report reviewed. It does show some worsening severe diverticulitis of descending colon with developing pericolonic abscess. Given patient is failing outpatient treatment�she will be admitted for IV antibiotics and further
monitoring. Discussed with patient who is comfortable with plan. Patient accepted to hospital service in stable condition
ED Attending Note
<Laura Nuno PA-C - Last Filed: 09/17/24 18:04>
-
Portions of this chart may have been created with voice recognition software.� Occasional wrong word or��sound alike� substitutions may have occurred due to the inherent limitations of voice recognition software.
<Halle Capone DO - Last Filed: 09/17/24 14:05>
ED Attending Note
Patient seen and examined by attending physician: Yes
I performed the substantive portion of visit, reviewed & personally made and approve the management plan that is documented in note by myself or REILLY.: Yes
I performed a history and physical exam of patient and discussed management with resident, I reviewed resident's note and agree with documented findings and plan of care.: Yes
ED Attending Note:
54-year-old female with history of hypertension presenting to the emergency department for abdominal pain and urinary symptoms. Patient was seen in the hospital 5 days ago, diagnosed with diverticulitis and started on Augmentin. Reports that pain
in abdomen has still been present, slightly improved. However, today reports hematuria with some pressure with urination. Denies any fever. Denies vomiting. Denies pain with urination. Vital signs on arrival significant for mild hypertension.
On exam patient is resting comfort on abdominal exam, focal tenderness to the left lower quadrant without rebound or guarding. Patient had laboratory analysis and urinalysis completed prior to my assessment with potential differential diagnosis of
urinary tract infection. However urine shows RBCs without significant infection. Patient continues to have leukocytosis, however improved from recent hospital visit. Given patient's exam with no hematuria, will rescan to ensure no additional
complicating features to patient diverticulitis.
14:00 -CT shows concern for severe diverticulitis, worsening, with developing pericolonic abscess. For this reason, will start broad-spectrum IV antibiotics and plan for admission.
Discharge Plan
Departure
Patient Disposition: Admit
Date of Disposition: 09/17/24
Time of Disposition: 14:08
Presentation/result/management discussed w/ accepting MD/DO: Hospitalist
Discharge Problem:
Diverticulitis of large intestine with complication
Prescriptions:
No Action
amoxicillin-pot clavulanate 875-125 mg tablet
1 tab PO BID Qty: 14 0RF
ondansetron HCl 8 mg tablet
8 mg PO Q8HPRN PRN (Reason: nausea/vomiting)
meloxicam 15 mg tablet
15 mg PO QPM
cyanocobalamin (vitamin B-12) 1,000 mcg Tablet
1,000 mcg PO DAILY
tramadol 50 mg tablet
50 mg PO HS
montelukast 10 mg tablet
10 mg PO DAILY
vitamin D3-vitamin K2 125-90 mcg Capsule
1 cap PO DAILY
Ozempic 0.25 mg or 0.5 mg (2 mg/3 mL) pen injector
0.25 mg SC SA
gabapentin 300 mg capsule
300 mg PO QPM
Referrals:
Gretel Roach CRNP [Family Provider] -
Interventions
Interventions:
*Risk Screen - Suicide Last Done: 09/17/24 10:58
*Neglect/Abuse Screening Last Done: 09/17/24 10:58
*ED COVID-19 Vaccine History Last Done: 09/17/24 10:36
ED-Female Genitourinary Assessment Last Done: 09/17/24 10:58
Discharge Date and Time
Print Language: UKRAINIAN
[2024-09-17] MEDS: NSS 1000 IV ×2 (12:47→21:13)
[2024-09-17] MEDS: ZOSYN 50 IV ×2 (14:24→21:14)
--- NOTE | 2024-09-17 15:33 | HPS.HSE ---
Family Physician
-
Family Physician: SARA Pablo
Chief Complaint
-
Increased abdominal pain to left entire stomach increase left sided with bowel movement unknown last time
History of Present Illness
54-year-old female with a diagnosis of acute diverticulitis on 09/13/2024 in the ER and is on current antibiotics with Augmentin that started on Wednesday. She states that she has not had a bowel movement in unknown amount of time likely greater
than 3 days the patient reports her left mid abdominal pain has slowly been improving, although she noticed pressure in the suprapubic area over the past 2 days with urinary frequency, hematuria but no dysuria. She reports she had few episodes of
blood in her urine this morning she did contact her PCP who was concerned about a possible bladder infection and sent her to the ER for evaluation. She denies fever, chills, nausea, vomiting, diarrhea, chest pain, palpitations, shortness of breath,
cough, rash. Her past medical history of arthritis, chronic back pain with epidural shots, hypothyroidism/thyroid nodule/partial thyroidectomy 2021, arthritis/OA, cyst and kidney, liver cyst, 4 para 3 AB 1 miscarriage 11 to 12 weeks
Medical History
Past Medical History
Past Medical History: Reports Other
Additional Past Medical History:
Arthritis/osteoarthritis
Hypothyroidism/thyroid nodule/thyroid partial removal 2021
Chronic back pain/DDD for which she receives epidurals
Diverticulitis Hx
Known liver cyst and kidney cyst
HTN
Situational anxiety
Prediabetes
PARKER
Past Surgical History: Reports Other
Additional Past Surgical History:
section x 2
L3�4�5 surgery epidural injections
Right rotator cuff repair 2004
Left total knee arthroplasty 03/18/2023 Dr. Soto
Right knee arthroplasty
Plantar fasciitis right foot repair
Right ankle ligament repair
Partial thyroidectomy 2021
Social History
Tobacco: Non-smoker
Alcohol: None
Personal:
Living: With Family
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
Family History
Family History: Not pertinent
Allergies / Home Medications
Allergies reflects when Allergies were last updated in [facility].
Home Medications with original date entered in [facility]
Allergy/Medication List:
Allergies
Allergy/AdvReac Type Severity Reaction Status Date / Time
pollen extracts Allergy hayfever Verified 09/17/24 10:40
morphine [Morphine] AdvReac Nausea / Verified 09/17/24 10:40
Vomiting
oxycodone AdvReac Nausea / Verified 09/17/24 10:40
Vomiting
Home Medications
amoxicillin 875 mg-potassium clavulanate 125 mg tablet 1 tab PO BID #14 tabs 09/13/24
cyanocobalamin (vitamin B-12) 1,000 mcg tablet 1,000 mcg PO DAILY 09/17/24
gabapentin 300 mg capsule 300 mg PO QPM 09/17/24
meloxicam 15 mg tablet 15 mg PO QPM 09/17/24
montelukast 10 mg tablet 10 mg PO DAILY 09/17/24
ondansetron HCl 8 mg tablet 8 mg PO Q8HPRN PRN nausea/vomiting 09/17/24
semaglutide 0.25 mg or 0.5 mg (2 mg/3 mL) subcutaneous pen injector (Ozempic) 0.25 mg SC SA 09/17/24
tramadol 50 mg tablet 50 mg PO HS 09/17/24
vitamin D3 125 mcg (5,000 unit)-vitamin K2 90 mcg capsule 1 cap PO DAILY 09/17/24
Review of Systems
-
History Source: Patient
A 12 point ROS was completed and negative except as noted: Yes
Constitutional: Denies Fever, Fatigue or Chills
EENT: Denies Sore Throat or Runny Nose
Respiratory: Denies Cough or Trouble Breathing
Cardiac: Denies Chest Pain, Diaphoresis or Palpitations
Abdomen/GI: Reports Abdominal Pain (Generalized but increased left sided, suprapubic), Nausea, Vomiting and Constipated (Unknown amount of days); Denies Diarrhea, Bloody Stools or Black Stools
: Reports Frequency, Urgency and Bleeding; Denies Dysuria, Flank Pain or Incontinence
Musculoskeletal: Denies Joint Pain or Edema
Skin: Denies Itching or Rash
Neurological: Denies Dizzy or Headache
Endocrine: Reports No Symptoms
Hematologic/Lymphatic: Reports No Symptoms
Psych: Reports Calm
Physical Exam
Vital Signs
Vital Signs
Temp Pulse Resp BP Pulse Ox
98.1 F 67 13 145/77 96
09/17/24 10:36 09/17/24 12:45 09/17/24 12:45 09/17/24 12:00 09/17/24 12:45
Physical Exam
General: Comfortable, Conversant and Pain; No Chills
HEENT: NormoCephalic, Anicteric, Moist mucous membranes, PERRLA, [place] Conjunctivae and No Ptosis
Respiratory: Clear and Clear to Percussion; No Wheezes, Rales or Rhonchi
Cardiac: S1/S2 and Regular Rhythm; No Murmur, Rub, Gallop, Peripheral Edema or JVD
Breast: Deferred by me
GI: Soft, Non Distended, Normal Bowel Sounds, Tender (Over entire abdomen with left side being worse than right, suprapubic tenderness) and No Hepatosplenomegaly
Rectal: Deferred by Provider
Genito-urinary: Deferred by me
Musculoskeletal: No Clubbing, No Cyanosis and No Edema
Skin: Warm and Dry; No Rash
Neuro: AO x 3, No Motor Deficits, Nonfocal/grossly intact, Cranial Nerves Intact and No Sensory Deficits; No Slurred Speech, Facial Droop, Tremors or Sedated
Psych: Calm
Laboratory Results
-
09/17/24 10:57
09/17/24 10:57
Laboratory Results
Total Bilirubin Cancelled 09/17/24 10:57
AST Cancelled 09/17/24 10:57
ALT Cancelled 09/17/24 10:57
Alkaline Phosphatase Cancelled 09/17/24 10:57
Impression/Plan
-
Impression/plan:
Admit to [facility]
#Worsening SEVERE DIVERTICULITIS DESCENDING colon with PERICOLONIC ABSCESS
-No improvement with Augmentin 1 tab twice daily since 09/13/24 total 5 days of Augmentin
-Abscess measuring 2.2 x 1.9 x 7.4 cm .
-WBC 13.2 with left shift, 98.1F, HR 67, 145/77
-Tylenol as needed mild pain, severe pain oxycodone 5/325 every 6 hours able to tolerate after her knee surgery (patient cannot tolerate IV morphine and IV Dilaudid due to persistent vomiting)
-IV Zosyn 3 gm
#Pericolonic fluid collection measuring 2cm x 2 cm x 1.9 cm x 7.4 cm
-Consult IR
-Consult Colorectal
-Soft diet tonight then N.p.o. after midnight
-Follow CBC, CMP
-PT/OT/case management consult
CT abdomen pelvis 09/17/2024
1. worsening severe diverticulitis of the descending colon now with pericolonic abscess measuring 2.2 x 1.9 x 7.4 cm .
2. there is no evidence of obstruction or perforation of the bowel diffuse
3. Hepatic steatosis stable
4. simple left renal cyst�no hydro
09/13/2024
CT abdomen pelvis with IV contrast:
1. ACUTE DIVERTICULITIS of the MID DESCENDING COLON.
2. Moderate diverticulosis throughout the descending and proximal sigmoid colon.
3. SEVERE DIFFUSE HEPATIC STEATOSIS and mild hepatomegaly.
4. 4 mm nonobstructing left intrarenal calculus.
5. 8.1 cm left lower pole renal cyst.
##Reported hematuria, urinary frequency no dysuria x 2 days concern for possible UTI - skewed by recent abx
Trace leukocytes RBC 40-50 squamous cells no WBCs +1 ketones
Await urine culture
#HTN�benign
145/77
No medication reported
#Right adrenal adenoma since 2018
-Reportedly has been stable since then on CT scans measuring 1.4 cm AP by 1.1 cm transverse by 1.2 cm craniocaudal
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
#Chronic back pain/DDD with Neuropathy -the patient receives epidurals to her lumbar spine
#Chronic arthritis/osteoarthritis
-Follow-up with strategic marketing specialist
-Continue tramadol 50 mg at bedtime, gabapentin 300 mg p.o. every afternoon, meloxicam 15 mg p.o. every afternoon
-Continue vitamin D3/vitamin K daily and B12 1000 mcg daily
#Known left renal cyst
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
#Hypothyroidism/thyroid nodule/thyroid partial removal 2021
-No medication reported
#Diverticulitis Hx
Known liver cyst and kidney cyst
HTN
Situational anxiety
Prediabetes
Obesity class III�BMI 44.8
Patient was on Ozempic 0.25 mg subcu Wednesday but she feels this is interfering with her other medications and making her feel sick so she has not been taking it
-I advised patient to eat a low-carb, low-fat diet and think of a different regimen for exercise that works for her
DVT prophylaxis
Subcu heparin
Full code
--- NOTE | 2024-09-17 16:57 | W.PN.UPDATE ---
Update Note
Progress Note Update
This is an addendum to the H&P written by Nat Thompson on 09/17/2024. Patient seen and examined independently with POPULATION HEALTH MANAGER.
54-year-old female past medical history of acute diverticulitis presenting for hematuria. Patient was in the emergency room last week and diagnosed with acute diverticulitis and started on Augmentin. Abdominal pain slowly improving although she
has some pressure in her suprapubic region over the past 2 days and increased urinary frequency. This morning she had blood in the urine.
Urinalysis shows 40-50 RBC. Trace leukocyte esterase.
CT abdomen pelvis shows worsening severe diverticulitis of the descending colon now with developing pericolonic abscess. N.p.o. past midnight. Jerica. IR consulted for I&D. Colorectal surgery consulted.
Hematuria likely secondary to UTI although urinalysis skewed by Augmentin. Await urine culture.
[2024-09-17] MEDS: PERCOCET 5/325 1 TABLET PO (18:38)
[2024-09-17] MEDS: ZOFRAN 4 MG IV (18:42)
[2024-09-17] MEDS: NEURONTIN 300 MG PO (20:25)
[2024-09-17] MEDS: HEPARIN 5000 UNITS SC (20:26)
[2024-09-17] MEDS: ULTRAM 50 MG PO (21:14)
--- NOTE | 2024-09-17 22:17 | PTCARENOTE ---
Pt admitted to 3W from ED. Pt AAOx3. Ambulated from stretcher to room without issues. Pt afebrile, VSS. Pt oriented to room. Call figueroa within reach and bed in lowest position. Plan for NPO at midnight.
[2024-09-17] MEDS: MELATONIN 5 MG PO (22:45)
[2024-09-18] VITALS (9 sets, daily range): BP systolic 79–180; BP diastolic 77–96; BMI 44.2
[2024-09-18] MEDS: ZOSYN 50 IV ×4 (03:49→21:08)
[2024-09-18] MEDS: ZOFRAN 4 MG IV ×3 (06:12→21:05)
[2024-09-18 08:03] LABS: % Basophils 0.3 % (0-2); % Eosinophils 1.2 % (0-6); % Immature Granulocytes 0.4 % (0-0.5); % Lymphocytes 16.7 % (20.5-51.1); % Monocytes 7.7 % (1.7-9.3); % Neutrophils 73.7 % (42.2-75.2); Absolute Eosinophils 0.1 10^3/uL (0-0.7); Absolute Immature Granulocytes 0.1 10^3/uL (0-0.05); Absolute Monocytes 0.9 10^3/uL (0.1-0.6); Absolute Neutrophils 8.8 10^3/uL (1.4-6.5); Hemoglobin 12.5 g/dL (12.0-16.0); Mean Corp Hgb Conc. 32.9 g/dL (33.0-37.0); Mean Corpuscular Hgb 30.6 pg (27.0-31.0); Mean Corpuscular Volume 92.9 fL (81.0-99.0); Mean Platelet Volume 9.7 fL (7.4-10.4); Nucleated Red Blood Cells % 0 %; Platelet Count 301 10^3/uL (130-400); Red Blood Cell Count 4.09 10^6/uL (4.20-5.40); Red Cell Dist. Width 13.2 % (11.5-14.5); White Blood Cell Count 11.9 10^3/uL (4.8-10.8)
[2024-09-18] MEDS: SINGULAIR 10 MG PO (08:38)
[2024-09-18] MEDS: HEPARIN 5000 UNITS SC (08:38)
[2024-09-18] MEDS: VITAMIN B-12 1000 MCG PO (08:38)
[2024-09-18 08:40] LABS: INR 0.97; PT 13.2 Sec (11.4-14.6)
[2024-09-18] MEDS: NSS 1000 IV ×2 (08:50→21:47)
[2024-09-18 09:16] LABS: ALT (SGPT) 18 U/L (0-35); AST (SGOT) 19 U/L (14-36); Albumin 3.5 g/dl (3.5-5.0); Alkaline Phosphatase 77 U/L (38-126); Blood Urea Nitrogen 11 mg/dl (7-17); Calcium 8.7 mg/dl (8.4-10.2); Carbon Dioxide 25 mmol/L (22-30); Chloride 102 mmol/L (98-107); Estimated Creatinine Clearance 109 ml/min; Glucose 109 mg/dl (70-99); Potassium 4.4 mmol/L (3.5-5.1); Sodium 139 mmol/L (135-145); Total Bilirubin 0.5 mg/dl (0.2-1.3); Total Protein 6.6 g/dl (6.3-8.2); eGFR > 60.00
[2024-09-18] MEDS: PERCOCET 5/325 1 TABLET PO (09:35)
--- NOTE | 2024-09-18 11:20 | PTOTSP ---
Chart reviewed, spoke with patient. The patient denied issues with mobility or balance and denies the need for PT evaluation. Patient was observed ambulating independently in the room earlier. PT will sign off - patient is aware our services are
available if needs arise.
--- NOTE | 2024-09-18 11:54 | CON.CRS ---
Consultation
-
Date/Time Consultation Requested: 09/17/2024, 17:27
Date/Time Consultation Performed: 09/18/2024, 09:30
Requesting Provider: Nat Thompson
Performing Provider: Leandro Jaramillo MD
Reason for Consultation: diverticulitis
Medical History
-
Chief Complaint: abdominal pain
History of Present Illness:
54-year-old female with a recent history of diverticulitis last week, presents to [facility] due to abdominal pain and vaginal bleeding. She had initially presented to the ER on 09/13/2024 complaining of left lower quadrant abdominal pain. She
underwent a CT of the abdomen and pelvis which showed diverticulitis of the mid descending colon and improved with Toradol. She was given a course of outpatient antibiotics which she has been taking. However she noticed that she had vaginal
bleeding yesterday and she has not had a menstrual cycle for years, so she presented back to the ER. She states her pain is not as bad as it was now. She has felt nauseous and she did vomit as we are walking into the room to do this consult due to
pain medication. She is has flatus. Her last bowel movement was 4 days ago. In the ER her WBC was 13.2 and is 11.9 today. She has remained afebrile. CT of the abdomen and pelvis shows severe inflammatory change about the mid ascending colon
with new developing lateral pericolonic fluid collection measuring up to 2.2 x 1.9 x 7.4 cm. The bowel is without evidence of obstruction or perforation. She has never had a colonoscopy but has had Cologuard throughout the years which have all
been negative. Her prior abdominal surgery includes 2 prior C-sections. Currently she states she is less tender compared to the onset 09/13/2024. She believes she had diverticulitis about a year ago, making this her second attack. We have been
consulted for further surgical opinion.
Past Medical History
Past Medical History: Other (Hypothyroidism, arthritis, osteoarthritis, thyroid nodule, partial thyroid removal, chronic back pain, diverticulitis, liver cysts, kidney cyst, hypertension, anxiety, prediabetes, PARKER)
Past Surgical History: Other ( x 2, L3-L4-L5 epidural injections, right rotator repair cuff, left total knee arthroplasty, right knee arthroplasty, plantar fasciitis right foot repair, right ankle ligament repair, partial thyroidectomy)
Social History
Tobacco: Non-Smoker
Alcohol: None
Personal:
Employment: Employed
Family History
Family History: Reviewed & Not Pertinent
Allergies / Home Medications
Allergy/AdvReac Type Severity Reaction Status Date / Time
pollen extracts Allergy hayfever Verified 09/17/24 10:40
morphine [Morphine] AdvReac Nausea / Verified 09/17/24 10:40
Vomiting
oxycodone AdvReac Nausea / Verified 09/17/24 10:40
Vomiting
�Medication �Instructions �Recorded �Confirmed �Type
amoxicillin 875 mg-potassium 1 tab PO BID Infection 09/17/24 09/17/24 History
clavulanate 125 mg tablet
cyanocobalamin (vitamin B-12) 1,000 mcg PO DAILY Supplement 09/17/24 09/17/24 History
1,000 mcg tablet
gabapentin 300 mg capsule 300 mg PO QPM Neurological 09/17/24 09/17/24 History
Condition
meloxicam 15 mg tablet 15 mg PO QPM Muscle Spasms 09/17/24 09/17/24 History
montelukast 10 mg tablet 10 mg PO DAILY Lung/Breathing 09/17/24 09/17/24 History
Issues
ondansetron HCl 8 mg tablet 8 mg PO Q8HPRN PRN nausea/vomiting 09/17/24 09/17/24 History
semaglutide 0.25 mg or 0.5 mg (2 0.25 mg SC SA Weight Gain 09/17/24 09/17/24 History
mg/3 mL) subcutaneous pen injector
(Ozempic)
tramadol 50 mg tablet 50 mg PO HS Pain 09/17/24 09/17/24 History
vitamin D3 125 mcg (5,000 1 cap PO DAILY Supplement 09/17/24 09/17/24 History
unit)-vitamin K2 90 mcg capsule
Review of Systems
-
History Source: Patient
Abdomen/GI: Abdominal Pain, Nausea and Vomiting
A 10 point review of systems was completed, and was negative except as per HPI.
Physical Exam
Vital Signs
Temp 98.0 F 09/18/24 07:12
Pulse 78 09/18/24 07:12
Resp Rate 17 09/18/24 07:12
Blood pressure 145/96 09/18/24 07:12
SaO2 95 09/18/24 07:12
09/17/24 09/18/24 09/19/24
06:59 06:59 06:59
Actual Weight 113.171 kg
Body Mass Index (BMI) 44.2
Lab Results / Allergies
09/18/24 07:33
09/18/24 07:33
WBC 11.9 10^3/uL (4.8-10.8) H 09/18/24 07:33
Hgb 12.5 g/dL (12.0-16.0) 09/18/24 07:33
Hct 38.0 % (37.0-47.0) 09/18/24 07:33
Plt Count 301 10^3/uL (130-400) 09/18/24 07:33
Abs Immat Gran (auto) 0.1 10^3/uL (0-0.05) H 09/18/24 07:33
Neutrophils % 73.7 % (42.2-75.2) 09/18/24 07:33
Allergy/AdvReac Type Severity Reaction Status Date / Time
pollen extracts Allergy hayfever Verified 09/17/24 10:40
morphine [Morphine] AdvReac Nausea / Verified 09/17/24 10:40
Vomiting
oxycodone AdvReac Nausea / Verified 09/17/24 10:40
Vomiting
Physical Exam
General: Well Developed, Well Nourished and No Apparent Distress
GI: Soft and Tender (Left upper quadrant tenderness mild to moderate, left lower quadrant tenderness mild)
Skin: Warm and Dry
Neuro: AO x 3
Psych: Calm
Data Reviewed
-
CT Scan: Image Personally Visualized and interpreted, Report Reviewed by me and Discussed with Patient
Labs: Labs Reviewed by me, Discussed with Physician and Discussed with Patient
Old Records: Reviewed
Assessment / Plan
-
Assessment: 54-year-old female with mid ascending colon diverticulitis and associated 2.2 x 1.9 x 7.4 cm abscess, second attack
Plan:
-No plans for urgent surgery at this time, if she were to worsen she will require a colectomy with colostomy creation
-IR has been consulted for abscess drainage
-Continue IV antibiotics
-N.p.o. with sips
-Recommend Lovenox for DVT prophylaxis
-Recommend gynecological consult given vaginal bleeding,
-Will follow
--- NOTE | 2024-09-18 12:05 | W.PN.HOSP.TC ---
Today's Communication/Plan
-
IVF
IV abx
NPO for now
trend hgb
SCDs
CRS/HARVEST SUPERVISOR eval
Assessment / Plan
Assessment / Plan
#Worsening SEVERE DIVERTICULITIS DESCENDING colon with PERICOLONIC ABSCESS
#Pericolonic fluid collection measuring 2cm x 2 cm x 1.9 cm x 7.4 cm
-No improvement with Augmentin 1 tab twice daily since 09/13/24 total 5 days of Augmentin
-Abscess measuring 2.2 x 1.9 x 7.4 cm .
-Tylenol as needed mild pain, severe pain oxycodone 5/325 every 6 hours able to tolerate after her knee surgery (patient cannot tolerate IV morphine and IV Dilaudid due to persistent vomiting)
-IV Zosyn 3 gm and IVF to be continued.
-anti-nausea meds prn
-Consult IR
-Consult Colorectal
-diet per surgery
# Postmenopausal vaginal bleeding
-states prior pap smear all have been negative.
-CT scan was performed only with IV contrast and no comments on pelvic organs.
-Hemoglobin without significant drop. Mild dilutional component.
-Will ask Clinical Data Management Manager for evaluation
#HTN�benign
No medication reported
elevated due to pain
#Right adrenal adenoma since 2019
-Reportedly has been stable since then on CT scans measuring 1.4 cm AP by 1.1 cm transverse by 1.2 cm craniocaudal
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
#Chronic back pain/DDD with Neuropathy -the patient receives epidurals to her lumbar spine
#Chronic arthritis/osteoarthritis
-Follow-up with investor relations specialist
-Continue tramadol 50 mg at bedtime, gabapentin 300 mg p.o. every afternoon, meloxicam 15 mg p.o. every afternoon
-Continue vitamin D3/vitamin K daily and B12 1000 mcg daily
#Known left renal cyst
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
#Hypothyroidism/thyroid nodule/thyroid partial removal 2021
-No medication reported
#Diverticulitis Hx
Known liver cyst and kidney cyst
HTN
Situational anxiety
Prediabetes
Obesity class III�BMI 44.8
Patient was on Ozempic 0.25 mg subcu Wednesday but she feels this is interfering with her other medications and making her feel sick so she has not been taking it
advised patient to eat a low-carb, low-fat diet and think of a different regimen for exercise that works for her
DVT prophylaxis-scds in setting of vaginal bleeding. can restart chemical ppx once bleeding stops
Full code
Anticipated Discharge: > 48 hours
Subjective/Interval History
-
Date of Service: September 18, 2024
states of vaginal bleeding-ongoing
no prior hx of vaginal bleeding
states of persistent LLQ abd pain
Objective Data
-
Labs:
Laboratory Results
09/18/24 09/18/24
07:33 08:01
WBC 11.9 H
Hgb 12.5
Hct 38.0
Plt Count 301
PT 13.2
INR 0.97
Sodium 139
Potassium 4.4
Chloride 102
Carbon Dioxide 25
BUN 11
Creatinine 0.7
Glucose 109 H
Calcium 8.7
Total Bilirubin 0.5
AST 19
ALT 18
Alkaline Phosphatase 77
Vital Signs:
Vital Signs
Temp Pulse Resp BP Pulse Ox
98.0 F 78 17 145/96 95
09/18/24 07:12 09/18/24 07:12 09/18/24 07:12 09/18/24 07:12 09/18/24 07:12
I&O
09/17/24 09/18/24 09/19/24
06:59 06:59 06:59
Intake Total 1280 / 1280
Balance 1280 / 1280
Physical Exam
-
General: Well Developed, Pain and Morbidly Obese
HEENT: Normocephalic, Atraumatic and Moist Mucous Membranes
Respiratory: Clear to Auscultation
Cardiac: Regular Rhythm and S1/S2; Negative Murmur, Rub or Gallop
GI: Soft, Normal Bowel Sounds and Tender (LLQ); Negative Organomegaly
Rectal: Deferred by Provider
Musculoskeletal: No Clubbing, No Cyanosis and No Edema
Skin: Negative Rash
Neuro: Awake, Alert, Oriented, AO x 3, No Motor Deficits and Nonfocal/Grossly Intact
Psych: Calm and Intact Judgement/Insight
Data Reviewed
-
Total Time Spent with Patient (in minutes): 56
[2024-09-18] MEDS: FLUSH (NSS) 1 FLUSH IV (15:05)
--- NOTE | 2024-09-18 16:33 | W.PN.UPDATE ---
Update Note
Progress Note Update
- CT guided aspiration of L pericolonic fluid collection
- Collection has an elongated appearance measuring less than 2 cm in the axial plane. This made drain placement difficult. We were able to appropriately place the needle however wire would not track/coil as desired precluding drain placement. We
ended up just performing aspiration, getting about 5 mL of turbid yellow fluid. No overtly purulent in nature.
- Pt tolerated well. No immediate complications.
[2024-09-18] MEDS: NEURONTIN PO ×2 (17:53→20:58)
[2024-09-18 19:18] LABS: Body Fluid WBC 75845 /CUMM
[2024-09-18 19:21] LABS: Body Fluid Second Tech EYM
--- NOTE | 2024-09-18 20:40 | CON.MD ---
Consultation - Medical
-
54 yo with PMB. LMP was 12/2021 - no VB until started Wednesday. Admitted for tx of diverticulitis and abscess. HAd drainage of abscess today. VB is like a ligt period. no pain - no vag d/c. Lat pap Normal HPV neg 10/2020. No h/o abnl pap.
PMH - Arthritis, Disc herniation/Disc disease, HTN, Depression/Anxiety, Diverticulitis, Diabetes, Morbid obesity, PARKER
PSH - C/Section x 2 BTL with last, Rotator cuff repair, Hernia repair as a child, Ankle tendo repair, Knee replaced left, Partial thyroidectomy, Multiple spine procedures
All - Morphine
Meds- Augmentin, Ozempic, Lotrisone, Valtrex, Gabapentin, Meloxicam, Montelukast, Tramadol
POBH - G4 P 3 Ab 1
PGYNH - no h/o abnl pap - LMP 12/2021 - now with PMB
FH - No RADIATION CONTROL TECHNICIAN malignancy
SH - non smoker
PE - 97.5 - 80 - 18 - 156/89
Lungs clear
CV - RRR
Abd - soft, non tender to palp. obese, + BS
Ext - no nuris's
Pelvic - EG - wnl
vaginal - + blood
cervix - normal
uterus - non palp
Assess - PMB
Plan -
No pap today - + blood - also Normal with HPV neg 10/2020 - recommended q 5y
Pelvic u/s ordered - disc risk of cancer - disc poss endo bx
U/s ordered - will await u/s report to eval Endometrial thickness
See dictated note. CH
[2024-09-18] MEDS: ULTRAM 50 MG PO (21:05)
[2024-09-19] MEDS: ZOSYN 50 IV ×2 (04:11→10:29)
[2024-09-19] MEDS: ZOFRAN 4 MG IV ×4 (04:11→23:47)
[2024-09-19 06:00] VITALS: BMI 44.1
[2024-09-19 07:21] LABS: % Basophils 0.5 % (0-2); % Eosinophils 1.1 % (0-6); % Immature Granulocytes 0.5 % (0-0.5); % Lymphocytes 18.6 % (20.5-51.1); % Monocytes 8.2 % (1.7-9.3); % Neutrophils 71.1 % (42.2-75.2); Absolute Basophils 0.1 10^3/uL (0-0.2); Absolute Eosinophils 0.1 10^3/uL (0-0.7); Absolute Immature Granulocytes 0.1 10^3/uL (0-0.05); Absolute Lymphocytes 2.2 10^3/uL (1.2-3.4); Absolute Neutrophils 8.4 10^3/uL (1.4-6.5); Hematocrit 39.5 % (37.0-47.0); Hemoglobin 13.3 g/dL (12.0-16.0); Mean Corp Hgb Conc. 33.7 g/dL (33.0-37.0); Mean Corpuscular Hgb 30.9 pg (27.0-31.0); Mean Corpuscular Volume 91.9 fL (81.0-99.0); Mean Platelet Volume 9.4 fL (7.4-10.4); Nucleated Red Blood Cells % 0 %; Platelet Count 296 10^3/uL (130-400); White Blood Cell Count 11.8 10^3/uL (4.8-10.8)
[2024-09-19 07:49] LABS: ALT (SGPT) 24 U/L (0-35); AST (SGOT) 24 U/L (14-36); Albumin 3.4 g/dl (3.5-5.0); Alkaline Phosphatase 90 U/L (38-126); Blood Urea Nitrogen 9 mg/dl (7-17); Calcium 8.6 mg/dl (8.4-10.2); Carbon Dioxide 26 mmol/L (22-30); Chloride 101 mmol/L (98-107); Estimated Creatinine Clearance 108 ml/min; Glucose 95 mg/dl (70-99); Potassium 4.3 mmol/L (3.5-5.1); Sodium 138 mmol/L (135-145); Total Bilirubin 0.7 mg/dl (0.2-1.3); Total Protein 6.4 g/dl (6.3-8.2); eGFR > 60.00
[2024-09-19 08:15] LABS: Body Fluid Granulocytes 97 %; Body Fluid Lymphocytes 2 %; Body Fluid Macrophages 1 %
[2024-09-19 08:16] VITALS: BP 143/77
[2024-09-19] MEDS: NSS 1000 IV ×2 (09:51→23:47)
[2024-09-19] MEDS: SINGULAIR 10 MG PO (09:51)
[2024-09-19] MEDS: VITAMIN B-12 1000 MCG PO (09:51)
--- NOTE | 2024-09-19 11:14 | W.PN.CRS1 ---
Today's Communication / Plan
-
clears
Assessment/Plan
-
Assessment: 54-year-old female with mid ascending colon diverticulitis and associated 2.2 x 1.9 x 7.4 cm abscess, second attack
09/18- s/p IR aspiration
Plan:
-No plans for urgent surgery at this time, if she were to worsen she will require a colectomy with colostomy creation
-IR has been consulted for abscess drainage
-Continue IV antibiotics
-Advance to clears
-Recommend Lovenox for DVT prophylaxis
-Transvaginal ultrasound per obgyn
-Will follow
Subjective Data
Subjective Data
Date of Service: September 19, 2024
Patient states she has some nausea but her belly pain is less. She denies any vomiting. She has flatus but not bowel movements yet.
Objective Data
-
Vital Signs
Temp Pulse Resp BP Pulse Ox
98.5 F 79 20 143/77 98
09/19/24 08:16 09/19/24 08:16 09/19/24 08:16 09/19/24 08:16 09/19/24 08:16
Intake & Output
09/18/24 09/19/24 09/20/24
06:59 06:59 06:59
Intake Total 1280 / 1280 50 / 50
Balance 1280 / 1280 50 / 50
Intake:
Oral fluids 480 / 480 0 / 0
IV fluids (Total) 800 / 800 50 / 50
NSS 50 / 50
Other:
Number of approximated MODERATE 2 3
amounts of urine
Number of immeasurable emeses? 1
Lab Results
09/19/24 06:59
09/19/24 06:59
Physical Exam
-
General: No Acute Distress and AOx3
Abdomen: Soft, Non Distended and Tender (Mild left lower quadrant)
Skin: Warm and Dry
--- NOTE | 2024-09-19 11:25 | W.PN.HOSP.TC ---
Today's Communication/Plan
-
Awaiting transvaginal ultrasound
Started on clears
IV fluid if tolerating clears
Continue IV Zosyn
Follow-up on the culture data
ID eval
Assessment / Plan
Assessment / Plan
#Worsening SEVERE DIVERTICULITIS DESCENDING colon with PERICOLONIC ABSCESS
#Pericolonic fluid collection measuring 2cm x 2 cm x 1.9 cm x 7.4 cm
-No improvement with Augmentin 1 tab twice daily since 09/13/24 total 5 days of Augmentin
-Abscess measuring 2.2 x 1.9 x 7.4 cm .
-Tylenol as needed mild pain, severe pain oxycodone 5/325 every 6 hours able to tolerate after her knee surgery (patient cannot tolerate IV morphine and IV Dilaudid due to persistent vomiting)
-IV Zosyn 3 gm and IVF to be continued.
-anti-nausea meds prn
-s/p IRAD drainage on 09/18-fluid prelim positive for pseudomonas/gram negative bacilli.
-Consult Colorectal
-diet per surgery -started on clears. If tolerating clears can IV fluids.
-ID eval -?may require IV abx
# Postmenopausal vaginal bleeding
-states prior pap smear all have been negative.
-CT scan was performed only with IV contrast and no comments on pelvic organs.
-Hemoglobin without significant drop. Mild dilutional component.
-US transvagina/pelvis pending
-SUPERVISOR SOLDER MAKING following
#HTN�benign
No medication reported
elevated due to pain
#Right adrenal adenoma since 2019
-Reportedly has been stable since then on CT scans measuring 1.4 cm AP by 1.1 cm transverse by 1.2 cm craniocaudal
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
#Chronic back pain/DDD with Neuropathy -the patient receives epidurals to her lumbar spine
#Chronic arthritis/osteoarthritis
-Follow-up with system specialist
-Continue tramadol 50 mg at bedtime, gabapentin 300 mg p.o. every afternoon, meloxicam 15 mg p.o. every afternoon
-Continue vitamin D3/vitamin K daily and B12 1000 mcg daily
#Known left renal cyst
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
#Hypothyroidism/thyroid nodule/thyroid partial removal 2021
-No medication reported
#Diverticulitis Hx
Known liver cyst and kidney cyst
HTN
Situational anxiety
Prediabetes
Obesity class III�BMI 44.8
Patient was on Ozempic 0.25 mg subcu Wednesday but she feels this is interfering with her other medications and making her feel sick so she has not been taking it
advised patient to eat a low-carb, low-fat diet and think of a different regimen for exercise that works for her
DVT prophylaxis-scds in setting of vaginal bleeding. can restart chemical ppx once bleeding stops
Full code
Anticipated Discharge: > 48 hours
Subjective/Interval History
-
Date of Service: September 19, 2024
states remains with vaginal bleeding
emotional this am
wanted something to drink
Objective Data
-
Labs:
Laboratory Results
09/19/24
06:59
WBC 11.8 H
Hgb 13.3
Hct 39.5
Plt Count 296
Sodium 138
Potassium 4.3
Chloride 101
Carbon Dioxide 26
BUN 9
Creatinine 0.7
Glucose 95
Calcium 8.6
Total Bilirubin 0.7
AST 24
ALT 24
Alkaline Phosphatase 90
Vital Signs:
Vital Signs
Temp Pulse Resp BP Pulse Ox
98.5 F 79 20 143/77 98
09/19/24 08:16 09/19/24 08:16 09/19/24 08:16 09/19/24 08:16 09/19/24 08:16
I&O
09/18/24 09/19/24 09/20/24
06:59 06:59 06:59
Intake Total 1280 / 1280 50 / 50
Balance 1280 / 1280 50 / 50
Physical Exam
-
General: Well Developed, Pain and Morbidly Obese
HEENT: Normocephalic, Atraumatic and Moist Mucous Membranes
Respiratory: Clear to Auscultation
Cardiac: Regular Rhythm and S1/S2; Negative Murmur, Rub or Gallop
GI: Soft, Normal Bowel Sounds and Tender (LLQ-improved from yesterday ); Negative Organomegaly
Rectal: Deferred by Provider
Musculoskeletal: No Clubbing, No Cyanosis and No Edema
Skin: Negative Rash
Neuro: Awake, Alert, Oriented, AO x 3, No Motor Deficits and Nonfocal/Grossly Intact
Psych: Calm and Intact Judgement/Insight
Data Reviewed
-
Total Time Spent with Patient (in minutes): 52
[2024-09-19 15:44] VITALS: BP 117/59
--- NOTE | 2024-09-19 15:46 | W.PN.UPDATE ---
Update Note
Progress Note Update
Did not see pt today - awaiting pelvic u/s - not done yet. Will check back later today and will see pt this evening or tomorrow morning after u/s done.
--- NOTE | 2024-09-19 16:00 | CON.ID ---
Consultation
-
Date/Time Consultation Requested: 09/19/24 11:21
Date/Time Consultation Performed: 09/19/24 16:00
Requesting Provider: Dr Yo
Performing Provider: Dr Flowers
Reason for Consultation: diverticulitis with abscess
Chief Complaint / Past History
Chief Complaint
abdominal pain and vaginal bleeding
History of Present Illness
Ms Kaur is a 54 year old female with history of diverticulitis, previous x2, class III obesity who presented here yesterday 09/18 for abdominal pain and post menopausal baginal bleeding. Of note she was diagnosed with diverticulitis last
week with LLQ abdominal pain and CT a/p with diverticulitis of the descending colon, she was prescribed augmentin 875/125 mg po bid which she has been taking. Then, two days ago she noted vaginal spotting, no pain or discharge (post menopausal) and
she presented to the ER. She reports abdominal pain is worsening, she is nausea and had an episode of vomiting yaneli tshe related to pain. She continued with flatus, last BM was 5 days ago. No recent other courses of antibioticss
Last PAP 10/2020 WNL and negative for HPV
Since arrival here she has been afebrile, bp stable, wbc last week 09/12 19.9 on arrival 09/17 13 and today 11.8, hgb 13.3, plt 296, L shift was noted 09/13 and has since resolved, cr 0.7, na 138, t bili 0.7, ast 24, alt 24, alk phos 90, ua no
pyuria there were 40-50 rbc/hpf, fluid wbc 76,000, 97% PMNs, 09/17 CT a/p with IV contrast: worsening, severe diverticultis with pericolonic abscess 2.2x1.9x7.4 cm. yesterday patient underwent CT guided abscess drainage with 5 mL of turbid yellow
fluid on aspiration, too small for drain placement and final CT with decreased size but no resolution of the collection. Fluid culture thus far with moderate presumptive psedumonas and rare second gnr, a pelvic US is also planned, she is currently
on zosyn, ID is consulted for assistance with management.
Past History
Additional Past Medical History:
1. Arthritis.
2. Disc herniation/disc disease.
3. Hypertension.
4. Depression.
5. Anxiety.
6. Diverticulitis.
7. Diabetes.
8. Class III obesity.
9. Obstructive sleep apnea.
Additional Past Surgical History:
1. section x2 with tubal ligation with her last .
2. Rotator cuff repair.
3. Hernia repair as a child.
4. Ankle tendon repair.
5. Knee replacement on the left side.
6. Partial thyroidectomy.
7. Multiple spinal procedures.
Allergy History:
pollen extracts Allergy (Verified 09/17/24 10:40)
hayfever
morphine [Morphine] Adverse Reaction (Verified 09/17/24 10:40)
Nausea / Vomiting
oxycodone Adverse Reaction (Verified 09/17/24 10:40)
Nausea / Vomiting
Medications Reviewed: Yes
Social History
Tobacco: Non-Smoker
Alcohol: None
Personal:
Family History
Family History: Not Pertinent
Review of Systems
Review of Systems
General: Negative Fever or Chills
All systems: All other systems were reviewed and were negative
Vital Signs
Temp Pulse Resp BP Pulse Ox
98.6 F 77 16 117/59 96
09/19/24 15:44 09/19/24 15:44 09/19/24 15:44 09/19/24 15:44 09/19/24 15:44
Physical Exam
Physical Exam
Constitutional: No Acute Distress and Obese
Cardiovascular: Regular Rate and S1/S2; Negative Murmur or Rub
Pulmonary: Clear and Symmetric; Negative Wheezes, Rales or Rhonchi
Gastrointestinal: Soft, Tender, Non Tender (with light touch on the left side) and Normal Bowel Sounds
Skin: Warm and Dry; Negative Rash or Jaundice
Lab / Diagnostic Study Results
09/19/24 06:59
09/19/24 06:59
Abs Immat Gran (auto) 0.1 10^3/uL (0-0.05) H 09/19/24 06:59
Absolute Neuts (auto) 8.4 10^3/uL (1.4-6.5) H 09/19/24 06:59
Absolute Lymphs (auto) 2.2 10^3/uL (1.2-3.4) 09/19/24 06:59
Absolute Monos (auto) 1.0 10^3/uL (0.1-0.6) H 09/19/24 06:59
Absolute Basos (auto) 0.1 10^3/uL (0-0.2) 09/19/24 06:59
Immature Gran % 0.5 % (0-0.5) 09/19/24 06:59
Neutrophils % 71.1 % (42.2-75.2) 09/19/24 06:59
Lymphocytes % 18.6 % (20.5-51.1) L 09/19/24 06:59
Monocytes % 8.2 % (1.7-9.3) 09/19/24 06:59
Eosinophils % 1.1 % (0-6) 09/19/24 06:59
Basophils % 0.5 % (0-2) 09/19/24 06:59
PT 13.2 Sec (11.4-14.6) 09/18/24 08:01
INR 0.97 09/18/24 08:01
Ur Squamous Epith Cells 26-30 /LPF (Few) 09/17/24 10:57
Microbiology Results
Micro:
09/18/24 16:00 Body Fluid Culture - Preliminary
Peritoneal Fluid Pseudomonas aeruginosa
Gram negative bacilli
Gram Stain - Preliminary
Assessment / Plan
Complicated Diverticulitis
Intraabdominal Abscess
Post menopausal bleeding
Class III obesity - on outpatient ozempic
- abscess culture moderate pseudomonas and second gram negative
- agree with zosyn for now - dose optimized for pseudomonas at 4.5 gm iv [id number]
- check QTc
- will consider possible switch to high bioavailability orals pending sensitivities
- recommend against probiotics in patients with suspected perforation
- follow clinically
[2024-09-19] MEDS: ZOSYN IV (16:45)
[2024-09-19] MEDS: ZOSYN 100 IV ×2 (17:42→23:47)
[2024-09-19] MEDS: NEURONTIN PO (17:43)
[2024-09-19] MEDS: ULTRAM PO ×2 (21:08→21:14)
[2024-09-19] MEDS: TYLENOL 650 MG PO (21:14)
[2024-09-19 23:25] VITALS: BP 144/73
[2024-09-20] MEDS: ZOSYN 100 IV ×2 (05:18→12:03)
[2024-09-20 06:00] VITALS: BMI 43.8
[2024-09-20 06:52] LABS: Hematocrit 38.6 % (37.0-47.0); Hemoglobin 12.8 g/dL (12.0-16.0); Mean Corp Hgb Conc. 33.2 g/dL (33.0-37.0); Mean Corpuscular Hgb 30.3 pg (27.0-31.0); Mean Corpuscular Volume 91.3 fL (81.0-99.0); Mean Platelet Volume 9.4 fL (7.4-10.4); Platelet Count 296 10^3/uL (130-400); Red Blood Cell Count 4.23 10^6/uL (4.20-5.40); Red Cell Dist. Width 12.9 % (11.5-14.5); White Blood Cell Count 9.6 10^3/uL (4.8-10.8)
--- NOTE | 2024-09-20 07:11 | W.PN.GYN.DG ---
Today's Communication / Plan
-
Pelvic u/s showed 5mm ES - borderline for OVEREDGE SEWER woman
Rec endo bx - Disc doing in hospital or in the office as out pt
Pt opts to do in the office as out pt
Stressed importance of f/u and pt expressed understanding
With 5mm ES that is reassuring but still would rec endo bx
Pt has our office # and will call at dc to arrange endo bx
Pt ok to d/c to home from SHANK INSPECTOR standpoint - will sign off on consult
Assessment / Plan
-
Assessment: PMB
Plan:
Pelvic u/s showed 5mm ES - borderline for OVEREDGE SEWER woman
Rec endo bx - Disc doing in hospital or in the office as out pt
Pt opts to do in the office as out pt
Stressed importance of f/u and pt expressed understanding
With 5mm ES that is reassuring but still would rec endo bx
Pt has our office # and will call at dc to arrange endo bx
Pt ok to d/c to home from SHANK INSPECTOR standpoint - will sign off on consult
Subjective / Objective Data
Subjective Data
PT feeling better - no VB - stopped yesterday
Objective Data
Vital Signs
Temp Pulse Resp BP Pulse Ox
98.3 F 82 18 144/73 99
09/19/24 23:25 09/19/24 23:25 09/19/24 23:25 09/19/24 23:25 09/19/24 23:25
Intake & Output
09/19/24 09/20/24 09/21/24
06:59 06:59 06:59
Intake Total 50 / 50 3179 / 3179
Balance 50 / 50 3179 / 318
Intake:
Oral fluids 0 / 0 960 / 960
IV fluids (Total) 50 / 50 2019
NSS 50 / 50
IV piggybacks 200 / 200
Other:
Number of approximated MODERATE 3 3
amounts of urine
Number of immeasurable emeses? 1
Physical Exam
-
Abdomen: Soft and Nontender
Data Reviewed
-
Lab Data
09/20/24 06:36
Urine Color Yellow 09/17/24 10:57
Urine Clarity Clear (Clear) 09/17/24 10:57
Urine pH 5.0 (5.0-9.0) 09/17/24 10:57
Ur Specific Perley 1.020 (<1.030) 09/17/24 10:57
Urine Ketones 1+ (Negative) A 09/17/24 10:57
Urine Bilirubin Negative (Negative) 09/17/24 10:57
Urine Urobilinogen Negative (Neg - 1+) 09/17/24 10:57
[2024-09-20 07:36] VITALS: BP 173/90
[2024-09-20 08:02] LABS: Blood Urea Nitrogen 7 mg/dl (7-17); Calcium 8.6 mg/dl (8.4-10.2); Carbon Dioxide 23 mmol/L (22-30); Chloride 104 mmol/L (98-107); Estimated Creatinine Clearance > 125 ml/min; Glucose 101 mg/dl (70-99); Potassium 4.1 mmol/L (3.5-5.1); Sodium 139 mmol/L (135-145); eGFR > 60.00
[2024-09-20] MEDS: VITAMIN B-12 1000 MCG PO ×2 (09:28→09:29)
[2024-09-20] MEDS: SINGULAIR 10 MG PO (09:30)
--- NOTE | 2024-09-20 10:22 | W.PN.CRS1 ---
Today's Communication / Plan
-
Low residue diet
Assessment/Plan
-
Assessment: 54-year-old female with mid ascending colon diverticulitis and associated 2.2 x 1.9 x 7.4 cm abscess, second attack
09/18- s/p IR aspiration
Plan:
-No plans for urgent surgery at this time
-Continue IV antibiotics per ID
-Advance to low residue
-Lovenox for DVT prophylaxis
-No plans for surgery at this time. Okay for discharge from our perspective is tolerating low residue diet. We will sign off. Please contact us if further surgical issues arise.
Subjective Data
Subjective Data
Date of Service: September 20, 2024
Patient states she feels 'great'. She has no nausea or vomiting. She is having bowel movements. Her pain is much improved. She is very hungry.
Objective Data
-
Vital Signs
Temp Pulse Resp BP Pulse Ox
98.2 F 74 16 173/90 99
09/20/24 07:36 09/20/24 07:36 09/20/24 07:36 09/20/24 07:36 09/20/24 07:36
Intake & Output
09/19/24 09/20/24 09/21/24
06:59 06:59 06:59
Intake Total 50 / 50 3180 / 3180
Balance 50 / 50 3180 / 3180
Intake:
Oral fluids 0 / 0 960 / 960
IV fluids (Total) 50 / 50 2019 / 2019
NSS 50 / 50
IV piggybacks 200 / 200
Other:
Number of approximated MODERATE 3 3
amounts of urine
Number of immeasurable emeses? 1
Lab Results
09/20/24 06:36
09/20/24 06:36
Physical Exam
-
General: No Acute Distress and AOx3
Abdomen: Soft, Non Distended and Non Tender
Skin: Warm and Dry
[2024-09-20] MEDS: ZOFRAN 4 MG IV (11:28)
--- NOTE | 2024-09-20 11:42 | W.PN.HOSP.TC ---
Today's Communication/Plan
-
DC IV fluid
Continue with increased dose of Zosyn
Monitor for diet tolerance
DC IV fluids
Monitor blood pressure
Assessment / Plan
Assessment / Plan
#Worsening SEVERE DIVERTICULITIS DESCENDING colon with PERICOLONIC ABSCESS
#Pericolonic fluid collection measuring 2cm x 2 cm x 1.9 cm x 7.4 cm
-No improvement with Augmentin 1 tab twice daily since 09/13/24 total 5 days of Augmentin
-Abscess measuring 2.2 x 1.9 x 7.4 cm .
-Tylenol as needed mild pain, severe pain oxycodone 5/325 every 6 hours able to tolerate after her knee surgery (patient cannot tolerate IV morphine and IV Dilaudid due to persistent vomiting)
-IV Zosyn 3 gm and IVF to be continued.
-anti-nausea meds prn
-s/p IRAD drainage on 09/18-fluid prelim positive for pseudomonas/gram negative bacilli.
-Diet per surgery. DC fluids.
-Status post susceptibility results of the fluid culture which grew Pseudomonas and Klebsiella. Will await ID recs
# Postmenopausal vaginal bleeding
-states prior pap smear all have been negative.
-CT scan was performed only with IV contrast and no comments on pelvic organs.
-Hemoglobin without significant drop. Mild dilutional component.
-US transvagina/pelvis with endometrial thickening.
-FREELANCE RECRUITER following and recommended outpatient endometrial biopsy. Patient understands need to follow-up with her primary gynecology who saw her in the hospital.
#HTN�benign
No medication reported
elevated due to pain
Monitor for now mild elevation noted. Not on any meds. Patient states due to stress anxiety in hospital.
#Right adrenal adenoma since 2019
-Reportedly has been stable since then on CT scans measuring 1.4 cm AP by 1.1 cm transverse by 1.2 cm craniocaudal
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
#Chronic back pain/DDD with Neuropathy -the patient receives epidurals to her lumbar spine
#Chronic arthritis/osteoarthritis
-Follow-up with aviation operations specialist
-Continue tramadol 50 mg at bedtime, gabapentin 300 mg p.o. every afternoon, meloxicam 15 mg p.o. every afternoon
-Continue vitamin D3/vitamin K daily and B12 1000 mcg daily
#Known left renal cyst
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
#Hypothyroidism/thyroid nodule/thyroid partial removal 2021
-No medication reported
#Diverticulitis Hx
Known liver cyst and kidney cyst
HTN
Situational anxiety
Prediabetes
Obesity class III�BMI 44.8
Patient was on Ozempic 0.25 mg subcu Wednesday but she feels this is interfering with her other medications and making her feel sick so she has not been taking it
advised patient to eat a low-carb, low-fat diet and think of a different regimen for exercise that works for her
DVT prophylaxis-scds in setting of vaginal bleeding.
Full code
Asked about flying to [place] for trip. Recommended rest however at the end of the day it is patient decision.
Anticipated Discharge: Within 24 hours
Subjective/Interval History
-
Date of Service: September 20, 2024
states of LLQ tenderness but not with severe pain
tolerating liquids
Per patient vaginal bleeding has stopped
Objective Data
-
Labs:
Laboratory Results
09/20/24
06:36
WBC 9.6
Hgb 12.8
Hct 38.6
Plt Count 296
Sodium 139
Potassium 4.1
Chloride 104
Carbon Dioxide 23
BUN 7
Creatinine 0.6
Glucose 101 H
Calcium 8.6
Vital Signs:
Vital Signs
Temp Pulse Resp BP Pulse Ox
98.2 F 74 16 173/90 99
09/20/24 07:36 09/20/24 07:36 09/20/24 07:36 09/20/24 07:36 09/20/24 07:36
I&O
09/19/24 09/20/24 09/21/24
06:59 06:59 06:59
Intake Total 50 / 50 3180 / 3180
Balance 50 / 50 3180 / 3180
Data Reviewed
-
Total Time Spent with Patient (in minutes): 51
[2024-09-20 15:27] VITALS: BP 142/88
--- NOTE | 2024-09-20 15:42 | W.PN.ID1 ---
Date of Service
Date of Service: September 20, 2024
Today's Communication
- switched to ciprofloxacin and metronidazole, follow for tolerance overnight. I have told her I do have some concern for possible nausea with the ozempic which I have seen in another patient. Tentatively for a two week course 09/17-09/30
Assessment / Plan
Complicated Diverticulitis
Intraabdominal Abscess
Post menopausal bleeding
Class III obesity - on outpatient ozempic
- abscess culture moderate Pseudomonas and K oxytoca
- switched to ciprofloxacin and metronidazole, follow for tolerance overnight. I have told her I do have some concern for possible nausea with the ozempic which I have seen in another patient. Tentatively for a two week course 09/17-09/30
- QTc 437
- recommend against probiotics in patients with suspected perforation
- follow clinically
Chief Complaint
-: Other (diverticulitis)
Subjective / Review of Systems
afebrile
bp stable
improving abdominal pain
in a good mood
Vital Signs / Physical Exam
Vital Signs
Vital Signs
Temp Pulse Resp BP Pulse Ox
97.8 F 76 16 142/88 97
09/20/24 15:27 09/20/24 15:27 09/20/24 15:27 09/20/24 15:27 09/20/24 15:27
Physical Exam
Constitutional: No Acute Distress
Cardiovascular: Regular Rate and S1/S2; Negative Murmur or Rub
Pulmonary: Clear and Symmetric; Negative Wheezes or Rales
Gastrointestinal: Soft, Non Tender, Non Distended and Normal Bowel Sounds
Skin: Warm and Dry; Negative Rash or Jaundice
Objective Data
Lab Data
Lab Results
09/20/24 06:36
09/20/24 06:36
PT 13.2 Sec (11.4-14.6) 09/18/24 08:01
INR 0.97 09/18/24 08:01
Estimated Creat Clear > 125 ml/min 09/20/24 06:36
Total Bilirubin 0.7 mg/dl (0.2-1.3) 09/19/24 06:59
AST 24 U/L (14-36) 09/19/24 06:59
ALT 24 U/L (0-35) 09/19/24 06:59
Alkaline Phosphatase 90 U/L (38-126) 09/19/24 06:59
Most recent labs reviewed.
Micro Results:
09/18/24 16:00 Body Fluid Culture - Final
Peritoneal Fluid Pseudomonas aeruginosa
Klebsiella oxytoca
Gram Stain - Final
[2024-09-20] MEDS: FLAGYL 500 MG PO ×2 (16:09→21:05)
--- NOTE | 2024-09-20 16:34 | CM ---
Reviewed chart, met with patient to obtain information for assessment. Patient stated that she lives with her spouse in a spilt level home with 3 steps to enter. Her 16 y/o daughter also lives there. Patient described herself as independent with all
of her ADLs, personal care, bathing and dressing. 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 She drives and can transport herself to her appointments and does all of her shopping. 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
Patient has no DME.
She has not had VN services.
Patient has not been to a SNF in the past.
Patient has a prescription plan and uses, [facility] in [place] for all of her medication.
Patient's PCP, is Gretel Arguello.
Patient stated that she is functionally at her baseline and will be able to return home when stable.
Plan: Case management will continue to follow and assist with discharge planning. Home when cleared medically.
[2024-09-20] MEDS: NEURONTIN PO (18:23)
[2024-09-20] MEDS: CIPRO 500 MG PO (20:06)
[2024-09-20] MEDS: ULTRAM 50 MG PO (21:05)
[2024-09-20 23:14] VITALS: BP 153/81
[2024-09-21 06:00] VITALS: BMI 43.7
[2024-09-21 06:42] LABS: % Basophils 0.4 % (0-2); % Eosinophils 1.8 % (0-6); % Immature Granulocytes 0.4 % (0-0.5); % Lymphocytes 27.2 % (20.5-51.1); % Monocytes 10.6 % (1.7-9.3); % Neutrophils 59.6 % (42.2-75.2); Absolute Eosinophils 0.2 10^3/uL (0-0.7); Absolute Lymphocytes 2.7 10^3/uL (1.2-3.4); Absolute Neutrophils 5.9 10^3/uL (1.4-6.5); Hematocrit 38.3 % (37.0-47.0); Hemoglobin 12.7 g/dL (12.0-16.0); Mean Corp Hgb Conc. 33.2 g/dL (33.0-37.0); Mean Corpuscular Hgb 30.2 pg (27.0-31.0); Mean Corpuscular Volume 91.2 fL (81.0-99.0); Mean Platelet Volume 9.6 fL (7.4-10.4); Nucleated Red Blood Cells % 0 %; Platelet Count 311 10^3/uL (130-400); Red Cell Dist. Width 13.1 % (11.5-14.5); White Blood Cell Count 9.8 10^3/uL (4.8-10.8)
[2024-09-21 07:21] LABS: Blood Urea Nitrogen 9 mg/dl (7-17); Calcium 8.7 mg/dl (8.4-10.2); Carbon Dioxide 25 mmol/L (22-30); Chloride 104 mmol/L (98-107); Estimated Creatinine Clearance > 125 ml/min; Glucose 105 mg/dl (70-99); Potassium 3.9 mmol/L (3.5-5.1); Sodium 139 mmol/L (135-145); eGFR > 60.00
[2024-09-21 08:30] VITALS: BP 136/72
--- NOTE | 2024-09-21 08:35 | W.PN.CRS1 ---
Today's Communication / Plan
-
no plans for surgery
dispo per primary team
Assessment/Plan
-
Assessment: 54-year-old female with mid ascending colon diverticulitis and associated 2.2 x 1.9 x 7.4 cm abscess, second attack
09/18- s/p IR aspiration
Plan:
-No plans for urgent surgery at this time
-Continue antibiotics per ID
-Continue low residue
-Lovenox for DVT prophylaxis
-No plans for surgery at this time. Okay for discharge from our perspective is tolerating low residue diet. We will sign off. Please contact us if further surgical issues arise.
Subjective Data
Subjective Data
Date of Service: September 21, 2024
Patient states she feels well. She has no complaints. Her pain is gone. She has no nausea or vomiting.
Objective Data
-
Vital Signs
Temp Pulse Resp BP Pulse Ox
98.5 F 75 16 136/72 95
09/21/24 08:30 09/21/24 08:30 09/21/24 08:30 09/21/24 08:30 09/21/24 08:30
Intake & Output
09/20/24 09/21/24 09/22/24
06:59 06:59 06:59
Intake Total 3180 / 3180 720 / 720
Balance 3180 / 3180 720 / 720
Intake:
Oral fluids 960 / 960 720 / 720
IV fluids (Total) 2019
IV piggybacks 200 / 200
Other:
Number of approximated MODERATE 3 5
amounts of urine
Number of approximated LARGE 1
amounts of urine
Lab Results
09/21/24 06:28
09/21/24 06:28
Physical Exam
-
General: No Acute Distress and AOx3
Abdomen: Soft, Non Distended and Non Tender
Skin: Warm and Dry
[2024-09-21] MEDS: CIPRO 500 MG PO (09:07)
[2024-09-21] MEDS: SINGULAIR 10 MG PO (09:07)
[2024-09-21] MEDS: TYLENOL 650 MG PO (09:08)
[2024-09-21] MEDS: FLAGYL 500 MG PO (09:08)
--- NOTE | 2024-09-21 10:03 | W.PN.HOSP.TC ---
Today's Communication/Plan
-
po abx
dc home
OP f/u with [employer]RAVER and CRS
Assessment / Plan
Assessment / Plan
#Worsening SEVERE DIVERTICULITIS DESCENDING colon with PERICOLONIC ABSCESS
#Pericolonic fluid collection measuring 2cm x 2 cm x 1.9 cm x 7.4 cm
-No improvement with Augmentin 1 tab twice daily since 09/13/24 total 5 days of Augmentin
-Abscess measuring 2.2 x 1.9 x 7.4 cm .
-Tylenol as needed mild pain, severe pain oxycodone 5/325 every 6 hours able to tolerate after her knee surgery (patient cannot tolerate IV morphine and IV Dilaudid due to persistent vomiting)
-IV Zosyn 3 gm and IVF to be continued.
-anti-nausea meds prn
-s/p IRAD drainage on 09/18-fluid prelim positive for pseudomonas/gram negative bacilli.
-Diet per surgery. DC fluids.
-Status post susceptibility results of the fluid culture which grew Pseudomonas and Klebsiella. Zosyn discontinued and trial of Cipro and Flagyl overnight. Remained afebrile. Significant improvement abdominal exam. Outpatient colorectal
follow-up. Discussed with ID. Patient understand to not take Ozempic and Zofran while on Cipro and Flagyl due to interaction.
# Postmenopausal vaginal bleeding
-states prior pap smear all have been negative.
-CT scan was performed only with IV contrast and no comments on pelvic organs.
-Hemoglobin without significant drop. Mild dilutional component.
-US transvagina/pelvis with endometrial thickening.
-STEEL [employer]EL ENGRAVER following and recommended outpatient endometrial biopsy. Patient understands need to follow-up with her primary gynecology who saw her in the hospital.
#HTN�benign
No medication reported
elevated due to pain
Monitor for now mild elevation noted. Not on any meds. Patient states due to stress anxiety in hospital.
#Right adrenal adenoma since 2019
-Reportedly has been stable since then on CT scans measuring 1.4 cm AP by 1.1 cm transverse by 1.2 cm craniocaudal
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
#Chronic back pain/DDD with Neuropathy -the patient receives epidurals to her lumbar spine
#Chronic arthritis/osteoarthritis
-Follow-up with hospital cleaning specialist
-Continue tramadol 50 mg at bedtime, gabapentin 300 mg p.o. every afternoon, meloxicam 15 mg p.o. every afternoon
-Continue vitamin D3/vitamin K daily and B12 1000 mcg daily
#Known left renal cyst
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
#Hypothyroidism/thyroid nodule/thyroid partial removal 2021
-No medication reported
#Diverticulitis Hx
Known liver cyst and kidney cyst
HTN
Situational anxiety
Prediabetes
Obesity class III�BMI 44.8
Patient was on Ozempic 0.25 mg subcu Wednesday but she feels this is interfering with her other medications and making her feel sick so she has not been taking it
advised patient to eat a low-carb, low-fat diet and think of a different regimen for exercise that works for her
DVT prophylaxis-scds in setting of vaginal bleeding.
Full code
Asked about flying to [place] for trip tomm. Recommended rest however at the end of the day it is patient decision.
d/w with ID
More than 30 minutes spent in discharge including
Final examination of the patient
Summarizing hospital stay
Instructions for continuing care to all relevant caregivers
Preparation of discharge records, prescriptions, and referral forms
Total time spent (in minutes): 51
Anticipated Discharge: Today
Subjective/Interval History
-
Date of Service: September 21, 2024
feeling better
tolerating diet
no abd pain
no nausea or vomiting
Objective Data
-
Labs:
Laboratory Results
09/21/24
06:28
WBC 9.8
Hgb 12.7
Hct 38.3
Plt Count 311
Sodium 139
Potassium 3.9
Chloride 104
Carbon Dioxide 25
BUN 9
Creatinine 0.6
Glucose 105 H
Calcium 8.7
Vital Signs:
Vital Signs
Temp Pulse Resp BP Pulse Ox
98.5 F 75 16 136/72 95
09/21/24 08:30 09/21/24 08:30 09/21/24 08:30 09/21/24 08:30 09/21/24 08:30
I&O
09/20/24 09/21/24 09/22/24
06:59 06:59 06:59
Intake Total 3180 / 3180 720 / 720
Balance 3180 / 3180 720 / 720
Physical Exam
-
General: Well Developed, Pain and Morbidly Obese
HEENT: Normocephalic, Atraumatic and Moist Mucous Membranes
Respiratory: Clear to Auscultation
Cardiac: Regular Rhythm and S1/S2; Negative Murmur, Rub or Gallop
GI: Soft, Nontender, Nondistended and Normal Bowel Sounds; Negative Organomegaly
Rectal: Deferred by Provider
Musculoskeletal: No Clubbing, No Cyanosis and No Edema
Skin: Negative Rash
Neuro: Awake, Alert, Oriented, AO x 3, No Motor Deficits and Nonfocal/Grossly Intact
Psych: Calm and Intact Judgement/Insight
--- NOTE | 2024-09-21 10:27 | CM ---
Reviewed chart, patient cleared to go. Met with patient who expressed no concerns and will drive herself home which was approved by medical staff.
--- NOTE | 2024-09-21 13:47 | W.DCSUMMARY ---
Discharge Summary
Discharge Data
Date of Admission: 09/17/24
Date of Discharge: 09/21/24
-
Pending Results: No
Hospital Course
54-year-old female past medical history of recent diverticulitis, hypertension not on meds, adrenal adenoma, chronic back pain with neuropathy, PARKER not on CPAP, hypothyroidism, situational anxiety, obesity who is presented with severe abdominal
pain. Patient was recently diagnosed with diverticulitis and was on p.o. antibiotics. Patient with severe abdominal pain. Patient repeat CAT scan with Pericolonic fluid collection measuring 2cm x 2 cm x 1.9 cm x 7.4 cm. Interventional radiology
and colorectal surgery was consulted. Patient underwent iRad drainage. Fluid collection was small enough and no BHARGAVI drain was placed. Patient was started on IV Zosyn. Kept NPO. Patient with improvement abdominal pain and was started on liquid
diet. Patient also complaining of vaginal bleeding. Patient underwent pelvic ultrasound with mild endometrial thickening. Patient primary local superintendent was consulted and patient vaginal bleeding stopped as she recommended outpatient endometrial
biopsy. Patient was tolerating liquid diet and thus was advanced to low residue diet. Infectious disease was consulted and fluid culture with polymicrobial susceptibility results. Patient was transitioned to Cipro and Flagyl. Recommended to hold
off on taking Ozempic and Zofran while on antibiotics. Patient verbalized understanding. Patient be discharged home with follow-up with gynecology and colorectal surgery.
Discharge Plan
-
Patient Disposition: Home (Routine Discharge)
Discharge Diagnosis/Procedures: Recurrent diverticulitis with abscess status post drainage
Postmenopausal bleeding
Condition: Fair
Diet: Low Residue
Activity: With assistance and As tolerated
Driving Restrictions: No driving for 24 hours
Referrals:
Gretel Roach CRNP [Family Provider] - in less than 1 week
Edie Gonzalez MD [Active] - in one to two weeks
Leandro Jaramillo MD [Active] - in three to four weeks
Prescriptions:
New
ciprofloxacin HCl [Cipro] 500 mg tablet
500 mg PO Q12H Qty: 20 0RF
metronidazole 500 mg tablet
500 mg PO TID 10 Days Qty: 30 0RF
Continued
meloxicam 15 mg tablet
15 mg PO QPM
cyanocobalamin (vitamin B-12) 1,000 mcg Tablet
1,000 mcg PO DAILY
tramadol 50 mg tablet
50 mg PO HS
montelukast 10 mg tablet
10 mg PO DAILY
vitamin D3-vitamin K2 125-90 mcg Capsule
1 cap PO DAILY
gabapentin 300 mg capsule
300 mg PO QPM
Held
ondansetron HCl 8 mg tablet
8 mg PO Q8HPRN PRN (Reason: nausea/vomiting)
Hold Instructions: Resume on 10/02/24.
Ozempic 0.25 mg or 0.5 mg (2 mg/3 mL) pen injector
0.25 mg SC SA
Hold Instructions: Resume on 10/02/24.
Discontinued
amoxicillin-pot clavulanate 875-125 mg tablet
1 tab PO BID
Discharge Orders:
Discharge Patient (As Directed); Ordered 09/21/24
Ordered By: Nik Yo
Discharge Date and Time
Discharge Date/Time: 09/21/24 10:42
Print Language: SLOVENIAN
== END 2024-09-21 10:42 | disposition home or self-care (01) | DRG 391 ==
LOC: 3 WEST ACU 18:06
PROVIDERS: Clinical Nurse Specialist Family Health; Physician Assistant; Radiology Diagnostic Radiology; Radiology Vascular & Interventional Radiology; ADMITTING PHYSICIAN Hospitalist; ATTENDING PHYSICIAN Hospitalist; CONSULT PHYSICIAN Obstetrics & Gynecology Gynecology; CONSULT PHYSICIAN Surgery; EMERGENCY PHYSICIAN Student in an Organized Health Care Education/Training Program; FAMILY PHYSICIAN Nurse Practitioner Family; OTHER PHYSICIAN Student in an Organized Health Care Education/Training Program
PROC: 0W9G3ZX Drainage of Peritoneal Cavity, Percutaneous Approach, Diagnostic (ICD-10-PCS; 2024-09-18)
DX: K57.20 Diverticulitis of large intestine with perforation and abscess without bleeding (principal); K65.1 Peritoneal abscess; Z68.41 Body mass index [BMI] 40.0-44.9, adult; N95.0 Postmenopausal bleeding; R35.0 Frequency of micturition; I10 Essential (primary) hypertension; E03.9 Hypothyroidism, unspecified; E04.1 Nontoxic single thyroid nodule; K76.89 Other specified diseases of liver; K76.0 Fatty (change of) liver, not elsewhere classified; N20.0 Calculus of kidney; D35.01 Benign neoplasm of right adrenal gland; E66.813 Obesity, class 3; J30.1 Allergic rhinitis due to pollen; R93.89 Abnormal findings on diagnostic imaging of other specified body structures; B96.5 Pseudomonas (aeruginosa) (mallei) (pseudomallei) as the cause of diseases classified elsewhere; G47.33 Obstructive sleep apnea (adult) (pediatric); E11.40 Type 2 diabetes mellitus with diabetic neuropathy, unspecified; M47.814 Spondylosis without myelopathy or radiculopathy, thoracic region; F32.A Depression, unspecified; G89.29 Other chronic pain; E66.01 Morbid (severe) obesity due to excess calories; F41.9 Anxiety disorder, unspecified; N28.1 Cyst of kidney, acquired; Z96.653 Presence of artificial knee joint, bilateral; Z88.5 Allergy status to narcotic agent; Z79.1 Long term (current) use of non-steroidal anti-inflammatories (NSAID); Z79.891 Long term (current) use of opiate analgesic; Z79.85 Long-term (current) use of injectable non-insulin antidiabetic drugs
CPT/HCPCS: 49406; 74177; 76830; 76856; 80048; 80053; 81003; 81015; 85025; 85027; 85610; 87015; 87070; 87071; 87077; 87186; 87205; 89051; 93005; 96361; 96365; 96375; 99152; 99153; 99285; Q9967

== ENCOUNTER 2025-01-13 16:48 | Emergency (ER) | payer BC, SELFPAY ==
[2025-01-13 16:53] VITALS: BP 178/92
[2025-01-13 17:14] LABS: % Basophils 0.5 % (0-2); % Immature Granulocytes 0.3 % (0-0.5); % Lymphocytes 30.8 % (20.5-51.1); % Monocytes 7.8 % (1.7-9.3); % Neutrophils 59.6 % (42.2-75.2); Absolute Basophils 0.1 10^3/uL (0-0.2); Absolute Eosinophils 0.1 10^3/uL (0-0.7); Absolute Monocytes 0.8 10^3/uL (0.1-0.6); Absolute Neutrophils 5.7 10^3/uL (1.4-6.5); Hematocrit 41.3 % (37.0-47.0); Hemoglobin 13.9 g/dL (12.0-16.0); Mean Corp Hgb Conc. 33.7 g/dL (33.0-37.0); Mean Corpuscular Hgb 29.8 pg (27.0-31.0); Mean Corpuscular Volume 88.4 fL (81.0-99.0); Mean Platelet Volume 9.6 fL (7.4-10.4); Nucleated Red Blood Cells % 0 %; Platelet Count 268 10^3/uL (130-400); Red Blood Cell Count 4.67 10^6/uL (4.20-5.40); Red Cell Dist. Width 13.4 % (11.5-14.5); White Blood Cell Count 9.6 10^3/uL (4.8-10.8)
[2025-01-13 17:27] LABS: ALT (SGPT) 24 U/L (0-35); AST (SGOT) 20 U/L (14-36); Albumin 3.9 g/dl (3.5-5.0); Alkaline Phosphatase 82 U/L (38-126); Blood Urea Nitrogen 15 mg/dl (7-17); Calcium 9.4 mg/dl (8.4-10.2); Carbon Dioxide 25 mmol/L (22-30); Chloride 104 mmol/L (98-107); Glucose 144 mg/dl (70-99); Lipase 356 U/L (23-300); Potassium 4.2 mmol/L (3.5-5.1); Sodium 139 mmol/L (135-145); Total Bilirubin 0.4 mg/dl (0.2-1.3); Total Protein 7.3 g/dl (6.3-8.2); eGFR > 60.00
--- NOTE | 2025-01-13 19:49 | ED.GENMED ---
History of Present Illness
General
Chief Complaint: Abdominal Pain
Source: patient, records, previous radiology exam and previous hospital records
Exam Limitations: none
Time Seen by Provider: 01/13/25 19:36
Nursing documentation reviewed up to this point in time: agreed with
History of Present Illness
History of Present Illness:
54-year-old female left-sided abdominal pain onset 4 to 5 days ago same spot consistent with her prior diverticulitis, she was admitted a month ago with a diverticular abscess treated by IR drainage, has not been on antibiotics recently, no fever no
nausea or vomiting, has been urinating frequently, although she admits to she has been drinking a lot of water
Past History
Past History
ED Past Medical History: Psychiatric and Other (Arthritis)
ED Past Surgical History: and Orthopedic (L3-4-5 surgery); Negative Bowel resection
Social History
Tobacco: Non-smoker
Alcohol: None
Drug: None
Personal:
Living: with family
Employment: Employed
Review of Systems
Review of Systems
All Other Systems: Not applicable
Constitutional: Denies fever
ABD/GI: Reports abdominal pain
: Reports frequency
Musculoskeletal: Reports no symptoms
Skin: Reports no symptoms
Hematologic/Lymphatic: Reports no symptoms
Psychiatric: Reports no symptoms
Phy Exam
Physical Exam
Physical Exam:
Physical Exam
General: no apparent distress, not acutely ill
Neck: No jaundice
Heart: s1/s2 regular rate and rhythm, no murmur. equal radial pulses.
Lungs: no acute respiratory distress. clear bilaterally
Abdomen: Tender in the left mid abdomen
Neuro: alert and oriented. no focal neurological deficits
Skin: no rash
Psychiatric: well kept. interactive and cooperative
Extremities: no edema
Course
Orders/Labs/Results
Orders:
Orders
01/13/25 17:02
Complete Blood Count/With Diff Urgent
Comprehensive Metabolic Panel Urgent
Lipase Urgent
01/13/25 19:41
CT Abd/Pel (IV only)-DH only Urgent
Comment:
Reason For Exam: left sided pain
0.9% Sodium Chloride 1000 ml [Nss] 1,000 ml IV BOLUS
01/13/25 19:44
Ketorolac [Toradol] 30 mg IV NOW STA
01/13/25 20:09
Urinalysis Reflex To Culture Urgent
Date Specimen was Collected: 01/13/25
Time Specimen was Collected: 20:07
Urine Microscopic Reflex Cult Urgent
Urine Culture Urgent
MARIN Source: U
Specimen Description:
Date Specimen was Collected: 01/13/25
Time Specimen was Collected: 20:07
01/13/25 21:26
Zosyn 3.375 grams IVPB NOW Piperacillin/Tazo 3.375 Gram [Zosyn] 3.375 gram in 50 ml IV NOW
Abnormal Lab Results
01/13/25 01/13/25
17:02 20:09
Absolute Monos (auto) 0.8 H 10^3/uL
(0.1-0.6)
Glucose 144 H mg/dl
(70-99)
Lipase 356 H U/L
(23-300)
Leukocyte Esterase Rfl 1+ A
(Negative)
Urine RBC 3-6 A /HPF
(0-2)
01/13/25 17:02
01/13/25 17:02
Vital Signs
Initial and Last Documented VS:
Initial Vital Signs
Temp Pulse Resp Pulse Ox
98.1 F 89 18 99
01/13/25 16:50 01/13/25 16:50 01/13/25 16:50 01/13/25 16:50
Last Documented Vital Signs
Temp Pulse Resp BP Pulse Ox
98.1 F 89 18 178/92 99
01/13/25 16:50 01/13/25 16:50 01/13/25 16:50 01/13/25 16:53 01/13/25 16:50
MDM/Problems Addressed
Differential Diagnosis Includes:
Diverticulitis UTI stone nonspecific abdominal pain
MDM/Problems Addressed:
Abdominal pain
*Radiology
Radiology exam reviewed: radiology read reviewed
*Pulse Oximetry
Patient hypoxic: no
*Critical Care Note
Total Time (30-74mins, 75-104mins- exclusive of procedures): Not Applicable
Update Note
Update Note:
9:[address] noted patient feel much better after Toradol
Will start on antibiotics, follow-up colorectal ER if worsening symptoms
ED Attending Note
-
Portions of this chart may have been created with voice recognition software.� Occasional wrong word or��sound alike� substitutions may have occurred due to the inherent limitations of voice recognition software.
Discharge Plan
Departure
Patient Disposition: Home (Routine Discharge)
Date of Disposition: 01/13/25
Time of Disposition: 21:28
Patient with high blood pressure during this ER visit?: No
Condition: Good
Discharge Problem:
Diverticulitis
Instructions: Diverticulitis (DC)
Prescriptions:
New
ketorolac 10 mg tablet
10 mg PO Q8H PRN (Reason: Pain) Qty: 14 0RF
Rx Instructions:
maximum total duration of 5 days from all oral, intranasal, or parenteral formulations
amoxicillin-pot clavulanate 875-125 mg tablet
1 tab PO Q12H Qty: 14 0RF
No Action
ondansetron HCl 8 mg tablet
8 mg PO Q8HPRN PRN (Reason: nausea/vomiting)
meloxicam 15 mg tablet
15 mg PO QPM
cyanocobalamin (vitamin B-12) 1,000 mcg Tablet
1,000 mcg PO DAILY
tramadol 50 mg tablet
50 mg PO HS
montelukast 10 mg tablet
10 mg PO DAILY
vitamin D3-vitamin K2 125-90 mcg Capsule
1 cap PO DAILY
Ozempic 0.25 mg or 0.5 mg (2 mg/3 mL) pen injector
0.25 mg SC SA
gabapentin 300 mg capsule
300 mg PO QPM
ciprofloxacin HCl [Cipro] 500 mg tablet
500 mg PO Q12H Qty: 20 0RF
metronidazole 500 mg tablet
500 mg PO TID 10 Days Qty: 30 0RF
Interventions
Interventions:
*Risk Screen - Suicide Last Done: 01/13/25 16:53
*General Assessment Last Done: 01/13/25 16:53
*Neglect/Abuse Screening Last Done: 01/13/25 16:53
*ED- Fall Risk Assessment Last Done: 01/13/25 19:54
*ED COVID-19 Vaccine History Last Done: 01/13/25 16:53
NS-Adqjpi-Ymszeeqnbu Assessment Last Done: 01/13/25 19:54
Discharge Date and Time
Print Language: MEXICAN
[2025-01-13 19:54] VITALS: BMI 44.3
[2025-01-13] MEDS: TORADOL 30 MG IV (20:02)
[2025-01-13] MEDS: NSS 1000 IV (20:03)
[2025-01-13 20:22] LABS: Urine Albumin Negative (Neg - Trace); Urine Bilirubin Negative (Negative); Urine Character Clear (Clear); Urine Color Yellow; Urine Glucose Negative (Negative); Urine Ketone Negative (Negative); Urine Leukocyte 1+ (Negative); Urine Nitrite Negative (Negative); Urine Occult Blood Negative (Negative); Urine Specific Gravity 1.015 (<1.030); Urine Urobilinogen Negative (Neg - 1+)
[2025-01-13 20:38] LABS: Urine White Cell 0-2 /HPF (0-5)
[2025-01-13] MEDS: ZOSYN 50 IV (21:51)
[2025-01-13 21:54] VITALS: BP 133/58
[2025-01-13 22:00] VITALS: BP 122/78
== END 2025-01-13 23:17 | disposition home or self-care (01) ==
LOC: EMR 16:48
PROVIDERS: EMERGENCY PHYSICIAN Emergency Medicine; FAMILY PHYSICIAN Nurse Practitioner Family
DX: K57.32 Diverticulitis of large intestine without perforation or abscess without bleeding (principal)
CPT/HCPCS: 96365; 96375; 99284; 74177; 80053; 81003; 81015; 83690; 85025; 87086; Q9967